=== PATIENT | female | born 1935 | race Caucasian/White ===

== ENCOUNTER 2024-11-13 00:41 | Inpatient (IN) ==
[2024-11-13] MEDS: FAMOTIDINE 20MG IV PUSH 20 MG/5 ML SYR IV STA (01:05)
[2024-11-13] MEDS: ONDANSETRON INJ 2 MG/ML 2 ML VIAL IV STA (01:05)
--- NOTE | 2024-11-13 01:05 | Emergency Department Note ---
Impression & Plan Vomiting, GERD (gastroesophageal reflux disease), Elevated troponin, Left bundle branch block ED Provider Note NAME: SUMANTH POLANCO AGE: 88 SEX: F : 1935 ARRIVES VIA: Ambulance INFORMANT: Patient ED PROVIDER(S): Jerry Rios MD CHIEF COMPLAINT: Vomiting, chest pain PLAN: Disposition: Admit MEDICAL DECISION MAKING: The patient is a pleasant 88-year-old woman with a past medical history of CAD, hypertension, hyperlipidemia, GERD who presents to the emergency department via EMS and accompanied by family for evaluation of onset of nausea and vomiting this evening with subsequent constant chest pain and upper abdominal pain. She reports no change in her bowel movements which are usually loose and takes Metamucil for bulking. She has any fevers, chills, cough, congestion, urinary symptoms. She denies any shortness of breath. On evaluation the patient is in no acute distress, afebrile with stable vital signs. She appears clinically dry. She has mild gastric discomfort without discrete tenderness. EKG demonstrates baseline left bundle branch block without Sgarbossa criteria. CXR negative for acute cardiopulmonary process and KUB with nonobstructive bowel gas pattern per my personal preliminary review/interpretation. WBC within normal limits. H/H 11.8/36.0 without recent for comparison. Platelets 1 18K, decreased from prior but without recent for comparison. Chemistry without metabolic acidosis. Magnesium 1.3 with IV repletion initiated. LFTs unremarkable. Initial high-sensitivity troponin is 29 with repeat increased to 210, nonspecific. Lipase is normal. TSH within limits. UA without evidence of infection. CT of the chest was performed was negative for PE or acute cardiopulmonary process otherwise. CT of the abdomen pelvis was performed and was also negative for acute abnormalities. Given the patient's rise in troponin patient and family agree with plan for admission for further management. Given pain occurred only after vomiting suspect symptoms likely related to GI etiology. Case was discussed with Dr. Prescott, [facility] hospitalist who will evaluate the patient for admission. Further management per admitting team. Triage Nursing notes reviewed and agree them. Prior/external medical records reviewed Vital Signs: reviewed Differential diagnosis: Cardiac ischemia, aortic dissection, pulmonary embolism, pneumothorax, pneumonia, pericarditis, myocarditis, esophageal rupture, GERD, cholecystitis, pancreatitis, musculoskeletal, as well as other pathologies. ER treatment provided: See below. Diagnostics interpreted by me: ECG: Normal sinus rhythm, 97 bpm, no ectopy, left bundle branch block, no Sgarbossa criteria, QTc 464, QRS 138, similar to July 07, 2020. Cardiac Monitoring: An order for continuous cardiac monitoring was placed and demonstrated normal sinus rhythm, 97 bpm, no ectopy. Laboratory studies: See below Imaging studies: See below Consultation(s): Dr. Prescott, [facility] hospitalist. HPI: Per MDM. ROS: See above HPI for pertinent positives & negatives. A total of 10 systems reviewed and were otherwise negative. VITALS:See Below PHYSICAL EXAMINATION: GENERAL: Awake, alert, in no distress HENT: Normocephalic, atraumatic. Oropharynx with dry mucous membranes and otherwise unremarkable. EYES: Normal conjunctiva. Sclera non-icteric. NECK: Supple. No nuchal rigidity. FROM. No JVD. RESPIRATORY: Clear to auscultation. CARDIAC: Regular rate, normal rhythm. Extremities warm and well perfused. Pulses equal. ABDOMEN: Soft, non-distended. Mild epigastric discomfort without discrete tenderness to palpation. No rebound or guarding. No masses. MUSCULOSKELETAL: Chest examination reveals no tenderness. The back is symmetrical on inspection without obvious abnormality. There is no CVA tenderness to palpation. No joint edema. LOWER EXTREMITIES: Calves are equal size bilaterally and non-tender. No edema. No discoloration. NEURO: Normal sensorium. No sensory or motor deficits noted. SKIN: No rash or jaundice noted. Jerry Rios MD Past Med/Surg History Problem List (Updated 11/14/24 @ 03:34 by Jerry Rios MD) NSTEMI (non-ST elevated myocardial infarction) Left bundle branch block (Acute) Elevated troponin (Acute) GERD (gastroesophageal reflux disease) (Acute) Vomiting (Acute) Atypical chest pain Hyperlipidemia GERD (gastroesophageal reflux disease) CAD (coronary atherosclerotic disease) Hypertension (Acute) Finger laceration (Acute) Medical History CAD (coronary atherosclerotic disease) GERD (gastroesophageal reflux disease) Hyperlipidemia Hypertension Surgical History S/P CABG (coronary artery bypass graft) Social History Smoking Status: Former smoker Tobacco Type: Cigarettes Hx Alcohol Use: No Hx Substance Use: No Preferred Language: Arabic Communication Ability: Effective Director Supply Required: No Beliefs That Will Affect Care: None Feels Safe at Home: Yes Assistive Devices: Glasses and Walker Allergies Allergies Allergy/AdvReac Type Severity Reaction Status Date / Time adhesive Allergy Intermediate rash Verified 11/13/24 01:29 cimetidine Allergy Intermediate rash Verified 11/13/24 01:29 ketorolac Allergy Intermediate EYE Verified 11/13/24 01:29 DROPS--ITCHY RASH Home Meds Home Medications Medication Instructions Recorded Confirmed amitriptyline 10 mg tablet 10 mg PO HS 07/07/20 11/13/24 aspirin 81 mg tablet,delayed 81 mg PO DAILY 07/07/20 11/13/24 release (Jerzy Low Dose Aspirin) atorvastatin 20 mg tablet 20 mg PO HS 07/07/20 11/13/24 cholecalciferol (vitamin D3) 25 25 mcg PO DAILY 07/07/20 11/13/24 mcg (1,000 unit) tablet (Vitamin D3) cyanocobalamin (vitamin B-12) 1,000 mcg PO DAILY 07/07/20 11/13/24 1,000 mcg tablet (Vitamin B-12) metoprolol succinate 25 mg 12.5 mg PO HS 07/07/20 11/13/24 tablet,extended release 24 hr acetaminophen 500 mg tablet 500 - 1,000 mg PO DIRECTED PRN 11/13/24 11/13/24 (Tylenol Extra Strength) Pain famotidine 20 mg tablet 20 mg PO HS 11/13/24 11/13/24 losartan 25 mg tablet 25 mg PO DAILY 11/13/24 11/13/24 mirabegron 25 mg tablet,extended 25 mg PO HS 11/13/24 11/13/24 release 24 hr (Myrbetriq) pantoprazole 40 mg tablet,delayed 40 mg PO BID 11/13/24 11/13/24 release sucralfate 1 gram tablet (Carafate) 1 g PO TID PRN Acid Reflux 11/13/24 11/13/24 Results & Data (ED) Vital Signs Vital Signs - 24 hr 11/13/24 04:30 11/13/24 05:04 Pulse Rate 96 H 92 H Respiratory Rate 18 Blood Pressure 122/74 Blood Pressure Mean 91 Pulse Oximetry 100 Laboratory Data Attestation: I reviewed the patient's lab results. 11/13/24 08:23 11/13/24 00:55 Lab Results 11/13/24 11/13/24 11/13/24 Range/Units 00:55 01:32 02:27 WBC 8.42 (4.8-10.8) K/ul RBC 3.78 L (4.20-5.40) M/uL Hgb 11.8 L (12.0-16.0) g/dl Hct 36.0 L (37.0-47.0) % MCV 95.2 (80.0-100.0) fL MCH 31.2 (25.0-34.0) pg MCHC 32.8 (32.0-36.0) g/dL RDW Std Deviation 47.0 H (36.4-46.3) fL RDW Coeff of Pankaj 13.6 (11.5-14.5) % Plt Count 118 L (130-400) K/uL MPV 12.4 (9.4-12.4) fL Immature Gran % (Auto) 0.5 % Neut % (Auto) 77.7 % Lymph % (Auto) 11.6 % Davie % (Auto) 8.8 % Eos % (Auto) 1.2 % Baso % (Auto) 0.2 % Neut # (Auto) 6.54 H (1.40-6.50) K/uL Lymph # (Auto) 0.98 L (1.20-3.40) K/uL Davie # (Auto) 0.74 H (0.11-0.59) K/uL Eos # (Auto) 0.10 (0.00-0.50) K/uL Baso # (Auto) 0.02 (0.00-0.20) K/uL Immature Gran # (Auto) 0.04 (0.01-0.20) K/uL PT Cancelled 12.0 INR Cancelled 1.1 Sodium 141 (136-145) mmol/L Potassium 3.9 (3.5-5.1) mmol/L Chloride 108 H (98-107) mmol/L Carbon Dioxide 25 (21-32) mmol/L Anion Gap 8 (3-11) BUN 24 H (6-23) mg/dl Creatinine 1.03 (0.6-1.2) mg/dl Est Cr Clr Drug Dosing 30.4 ml/min eGFR 52.95 BUN/Creatinine Ratio 23.3 H (10-20) Glucose 111 H (70-99(Fasting)) mg/dl Calcium 8.6 (8.6-10.3) mg/dl Phosphorus 3.1 (2.5-4.9) mg/dl Magnesium 1.3 L (1.7-2.4) mg/dl Total Bilirubin 0.5 (0.2-1.0) mg/dl Direct Bilirubin 0.1 (0-0.2) mg/dl AST 35 (13-39) U/L ALT 28 (7-52) U/L Alkaline Phosphatase 106 H (34-104) U/L Troponin I High Sens 29.4 H (0-14) pg/ml Total Protein 6.0 (6.0-8.3) gm/dl Albumin 3.6 (3.4-5.0) gm/dl Globulin 2.4 L (2.5-4.0) gm/dl Albumin/Globulin Ratio 1.5 (0.9-2) Lipase 30 (11-82) U/L TSH 2.724 (0.300-4.500) uIu/ml Urine Color Yellow Urine Appearance Clear (Clear) Urine pH 6.0 (4.5-7.5) Ur Specific Miller 1.009 (1.000-1.030) Urine Protein Negative (Negative) Urine Glucose (UA) Negative (Negative) Urine Ketones Negative (Negative) Urine Blood Negative (Negative) Urine Nitrite Negative (Negative) Urine Bilirubin Negative (Negative) Urine Urobilinogen Negative (Negative) Ur Leukocyte Esterase Negative (Negative) Urine Comment 11/13/24 Range/Units 04:12 WBC (4.8-10.8) K/ul RBC (4.20-5.40) M/uL Hgb (12.0-16.0) g/dl Hct (37.0-47.0) % MCV (80.0-100.0) fL MCH (25.0-34.0) pg MCHC (32.0-36.0) g/dL RDW Std Deviation (36.4-46.3) fL RDW Coeff of Pankaj (11.5-14.5) % Plt Count (130-400) K/uL MPV (9.4-12.4) fL Immature Gran % (Auto) % Neut % (Auto) % Lymph % (Auto) % Davie % (Auto) % Eos % (Auto) % Baso % (Auto) % Neut # (Auto) (1.40-6.50) K/uL Lymph # (Auto) (1.20-3.40) K/uL Davie # (Auto) (0.11-0.59) K/uL Eos # (Auto) (0.00-0.50) K/uL Baso # (Auto) (0.00-0.20) K/uL Immature Gran # (Auto) (0.01-0.20) K/uL PT INR Sodium (136-145) mmol/L Potassium (3.5-5.1) mmol/L Chloride (98-107) mmol/L Carbon Dioxide (21-32) mmol/L Anion Gap (3-11) BUN (6-23) mg/dl Creatinine (0.6-1.2) mg/dl Est Cr Clr Drug Dosing ml/min eGFR BUN/Creatinine Ratio (10-20) Glucose (70-99(Fasting)) mg/dl Calcium (8.6-10.3) mg/dl Phosphorus (2.5-4.9) mg/dl Magnesium (1.7-2.4) mg/dl Total Bilirubin (0.2-1.0) mg/dl Direct Bilirubin (0-0.2) mg/dl AST (13-39) U/L ALT (7-52) U/L Alkaline Phosphatase (34-104) U/L Troponin I High Sens 210.5 H* D (0-14) pg/ml Total Protein (6.0-8.3) gm/dl Albumin (3.4-5.0) gm/dl Globulin (2.5-4.0) gm/dl Albumin/Globulin Ratio (0.9-2) Lipase (11-82) U/L TSH (0.300-4.500) uIu/ml Urine Color Urine Appearance (Clear) Urine pH (4.5-7.5) Ur Specific Miller (1.000-1.030) Urine Protein (Negative) Urine Glucose (UA) (Negative) Urine Ketones (Negative) Urine Blood (Negative) Urine Nitrite (Negative) Urine Bilirubin (Negative) Urine Urobilinogen (Negative) Ur Leukocyte Esterase (Negative) Urine Comment Administered Medications Aspirin (Aspirin 81 Mg Ectab) 81 mg PO QAM KYRA Stop: 12/13/24 09:59 Last Admin: 11/13/24 11:59 Dose: 81 mg Documented By: MMF Atorvastatin Calcium (Atorvastatin 20 Mg Tab) 20 mg PO HS KYRA Stop: 12/13/24 20:59 Last Admin: 11/13/24 21:29 Dose: 20 mg Documented By: HDC Cyanocobalamin (Cyanocobalamin (B-12) 500 Mcg Tablet) 1,000 mcg PO DAILY KYRA Stop: 12/13/24 08:59 Last Admin: 11/13/24 08:17 Dose: 1,000 mcg Documented By: MMF Famotidine (Famotidine 20 Mg Tab) 20 mg PO HS KYRA Stop: 12/13/24 20:59 Last Admin: 11/13/24 21:32 Dose: 20 mg Documented By: HDC Heparin Sodium/Dextrose (Heparin 31370 Unit/500 Ml D5w) 25,000 units in 500 mls @ 14 mls/hr IV .Q24H KYRA; Protocol Stop: 12/13/24 10:14 Last Titration: 11/14/24 01:48 Dose: 700 units/hr, 14 mls/hr Documented By: HDC Co-signed By: DESOMND Admin: 11/13/24 20:55 Dose: 750 units/hr, 15 mls/hr Documented By: HDC Co-signed By: [facility] Losartan Potassium (Losartan Potassium 25 Mg Tab) 25 mg PO DAILY KYRA Stop: 12/13/24 08:59 Last Admin: 11/13/24 08:17 Dose: 25 mg Documented By: MMF Metoprolol Succinate (Metoprolol Succ 25mg Ext Rel Tab) 12.5 mg PO HS KYRA Stop: 12/13/24 20:59 Last Admin: 11/13/24 21:29 Dose: Not Given Documented By: HDC Pantoprazole Sodium (Pantoprazole 40 Mg Tab) 40 mg PO BID KYRA Stop: 12/13/24 08:59 Last Admin: 11/13/24 21:29 Dose: 40 mg Documented By: Admin: 11/13/24 08:17 Dose: 40 mg Documented By: MMF Vibegron (Vibegron 75 Mg Tab) 75 mg PO HS KYRA Stop: 12/13/24 20:59 Last Admin: 11/13/24 21:29 Dose: 75 mg Documented By: HDC Discontinued Medications Famotidine (Pepcid 20mg Iv Push) 20 mg in 5 mls @ 2.5 mls/min IV NOW STA Stop: 11/13/24 01:00 Last Admin: 11/13/24 01:05 Dose: 2.5 mls/min Documented By: MIRIAN Sodium Chloride (Nss) 500 mls @ 999 mls/hr IV .Q31M ONE Stop: 11/13/24 01:31 Last Infusion: 11/13/24 03:00 Dose: Infused Documented By: Admin: 11/13/24 01:14 Dose: 999 mls/hr Documented By: MIRIAN Magnesium Sulfate/Dextrose (Magnesium Sulfate / D5w) 1 gm in 100 mls @ 100 mls/hr IV Q1H KYRA Stop: 11/13/24 03:56 Last Infusion: 11/13/24 04:24 Dose: Infused Documented By: Admin: 11/13/24 03:24 Dose: 100 mls/hr Documented By: Infusion: 11/13/24 03:07 Dose: Infused Documented By: Admin: 11/13/24 02:07 Dose: 100 mls/hr Documented By: MIRIAN Magnesium Sulfate/Dextrose (Magnesium Sulfate / D5w) 1 gm in 100 mls @ 50 mls/hr IV ONE STA Stop: 11/13/24 07:24 Last Infusion: 11/13/24 08:09 Dose: Infused Documented By: Admin: 11/13/24 05:32 Dose: 50 mls/hr Documented By: MBL Heparin Sodium/Dextrose (Heparin 23957 Unit/500 Ml D5w) 25,000 units in 500 mls @ 0 mls/hr IV .Q0M KYRA; Protocol Stop: 12/13/24 10:14 Last Titration: 11/13/24 21:16 Dose: Infused Documented By: HDC Co-signed By: ESG Titration: 11/13/24 19:19 Dose: 750 units/hr, 15 mls/hr Documented By: HDC Co-signed By: AMC Titration: 11/13/24 18:10 Dose: 0 units/hr, 0 mls/hr Documented By: AK Co-signed By: MP Admin: 11/13/24 10:53 Dose: 900 units/hr, 18 mls/hr Documented By: TOMAS Co-signed By: BELLA Magnesium Sulfate/Dextrose (Magnesium Sulfate / D5w) 1 gm in 100 mls @ 50 mls/hr IV Q2H KYRA Stop: 11/13/24 14:29 Last Infusion: 11/13/24 15:29 Dose: Infused Documented By: Admin: 11/13/24 13:29 Dose: 50 mls/hr Documented By: Infusion: 11/13/24 12:59 Dose: Infused Documented By: Admin: 11/13/24 10:48 Dose: 50 mls/hr Documented By: MMF Heparin Sodium/Dextrose (Heparin 50200 Unit/500 Ml D5w) 25,000 units in 500 mls @ 15 mls/hr IV .Q24H KYRA; Protocol Stop: 12/13/24 10:14 Last Admin: 11/13/24 21:16 Dose: Not Given Documented By: HDC Ioversol (Optiray 320 125ml) 125 ml IV ONCE ONE Stop: 11/13/24 03:49 Last Admin: 11/13/24 03:48 Dose: 118 ml Documented By: MONICA Ondansetron HCl (Ondansetron Inj 2 Mg/Ml 2 Ml Vial) 4 mg IV NOW STA Stop: 11/13/24 01:00 Last Admin: 11/13/24 01:05 Dose: 4 mg Documented By: MIRIAN Sucralfate (Sucralfate 1 Gm/10 Ml Udc) 1 gm PO NOW STA Stop: 11/13/24 05:16 Last Admin: 11/13/24 05:32 Dose: 1 gm Documented By: [facility] Imaging Data Radiologist's Impression: Chest X-Ray 11/13/24 00:59 EXAM: XR chest 1V portable CLINICAL HISTORY: Chest pain, nonspecific TECHNIQUE: An X-ray image of the chest is obtained in AP projection. COMPARISON: 07/07/2020. FINDINGS: Pulmonary Parenchyma: Stable small right upper and larger right middle lung zones opacities with irregular borders. Increased accentuated bilateral bronchovascular markings and prominent katty. No evidence of pleural effusion or pleural thickening. Heart and Mediastinum: Stable median sternotomy wires and atheromatous calcifications of the aorta. Heart size and shape are normal. No mediastinal widening or masses. No hilar or mediastinal lymphadenopathy. Bony Thorax: Bony thorax appears intact without fractures or deformities. Soft Tissues: Soft tissues overlying the chest wall are unremarkable. IMPRESSION: 1. Stable small right upper and larger right middle lung zones opacities with irregular borders. 2. CT scan is advised for further evaluation. Electronically signed by Napoleon Smith 11-13-2024 02:33 AM KUB X-Ray 11/13/24 00:59 EXAM: XR KUB/Abdomen 1 view CLINICAL HISTORY: Nausea, vomiting. TECHNIQUE: X-ray images of the abdomen were obtained in frontal position. COMPARISON: No prior studies available for comparison. FINDINGS: No definite calculi are seen along the confines of the urinary tract. Gas Pattern: Gas pattern within the abdomen is normal. No evidence of bowel obstruction or distention. Fecal loading shadows. Soft Tissues: Soft tissues of the abdomen appear normal without evidence of masses or calcifications. Liver, spleen, and kidneys are of normal size and position. Additional findings: Tiny opaque shadow possibly calcific overlying right hypochondrial confinement. Post cholecystectomy metallic clips. 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 Diffuse osteopenic texture of the scanned bones. Bilateral hip osteoarthritic changes. Bilateral sacroilitis. Aorto-iliac atheromatous calcifications. IMPRESSION: 1. Fecal loading shadows. 2. No evidence of bowel obstruction or distention at this time. Follow-up is suggested if clinically indicated. 3. Tiny opaque shadow possibly calcific overlying right hypochondrial confinement (not identified at CR chest done at the same time). Otherwise, no definite calculi are seen along the confines of the urinary tract. Electronically signed by Napoleon Smith 11-13-2024 03:01 AM Abdomen/Pelvis CT 11/13/24 02:32 EXAM: CT abd pelvis IV con only CLINICAL HISTORY: abd pain, n/v TECHNIQUE: Multiple contiguous axial images were obtained from the level of diaphragm to the pubis symphysis. This study was acquired after the IV administration of iodinated contrast material, given the patients indications for the examination. If IV contrast material had not been administered, the likelihood of detecting abnormalities relevant to the patients condition would have been substantially decreased. Coronal and sagittal reformatted images were generated and reviewed to improve anatomic localization and optimize lesion detection. CT scan was performed according to ALARA (as low as reasonable achievable). COMPARISON: none FINDINGS: ABDOMEN/PELVIS: The liver is normal in size and attenuation. No focal liver lesions are seen. There is no intra or extrahepatic biliary ductal dilatation. Hepatic vasculature is patent. The gallbladder was surgically removed The spleen, pancreas, and adrenal glands are unremarkable. The kidneys are normal in size and attenuation. There is no hydronephrosis or perinephric fat stranding. No renal calculi or renal masses are identified. Small exophytic bosniak type I cyst on right side. The ureters are normal in caliber and no ureteral calculi are seen. The bladder is undistended No evidence of focal or diffuse bowel wall thickening or evidence of bowel obstruction is seen. No evidence of inflamed appendix. No adenopathy or fluid collections are seen. The aorta is normal in caliber. 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 Angiographic images were processed, 3D MIP images were acquired for interpretation. If IV contrast material had not been administered, the likelihood of detecting abnormalities relevant to the patient's condition would have been substantially decreased. Coronal and sagittal 3-D MIPs were likewise performed and indicated to increase the sensitivity of detecting diffuse clinically relevant pathology. CT scan was performed according to ALARA (as low as reasonable achievable). COMPARISON: None. FINDINGS: Adequate contrast bolus without evidence of pulmonary embolism. Calcified pleural plaques are seen in the right chest along right upper lobe. Mild smooth interlobular septal thickening is seen in the lungs bilaterally. Dependent reticulations and ground glass areas are seen in the lungs bilaterally. Atlectatic bands are seen in lower lobes. The central airways are patent. No pleural effusion. The heart, aorta, and pulmonary arteries are of normal size and configuration. No pericardial effusion is identified. There are appreciable coronary artery and aortic atherosclerotic calcifications. The thyroid is unremarkable. No mediastinal, hilar, or axillary lymphadenopathy is noted. No suspicious lytic or sclerotic osseous lesions are identified. Degenerative changes are seen in visualised spine. Metallic sternal sutures are seen. IMPRESSION: 1.No evidence of pulmonary embolism. 2.Calcified pleural plaques in right chest along right upper lobe - 3.Mild smooth interlobular septal thickening is seen in the lungs bilaterally with dependent reticulations and ground glass areas - raising the possibility of interstitial edema. Electronically signed by Maximus Gonsalez 11-13-2024 05:14 AM Discharge Plan Visit Data Chief Complaint: Illness ED Provider: Jerry Rios Discharge Problem: Vomiting, GERD (gastroesophageal reflux disease), Elevated troponin, Left bundle branch block Patient Disposition: Admitted As Inpatient Condition: Fair Discharge Instructions Interventions: ED Discharge Assessment Last Done: 11/13/24 06:16 Discharge Problem: Vomiting Qualifiers: Vomiting type: unspecified Nausea presence: with nausea Qualified Code(s): R 11.2 - Nausea with vomiting, unspecified GERD (gastroesophageal reflux disease) Qualifiers: Esophagitis presence: with esophagitis Esophagitis bleeding: without hemorrhage Qualified Code(s): K21.00 - Gastro-esophageal reflux disease with esophagitis, without bleeding
[2024-11-13] MEDS: SODIUM CHLORIDE 0.9% 500 ML IV ONE (01:14)
[2024-11-13 01:28] LABS: Hematocrit (blood only) 36.0 % (37.0-47.0); Hemoglobin 11.8 g/dl (12.0-16.0); Immature Granulocytes # (auto) 0.04 K/uL (0.01-0.20); Immature Granulocytes % (auto) 0.5 %; Mean Corpuscular Hemoglobin 31.2 pg (25.0-34.0); Mean Corpuscular Volume 95.2 fL (80.0-100.0); Platelet Count 118 K/uL (130-400); RDW Standard Deviation 47.0 fL (36.4-46.3); Red Blood Count 3.78 M/uL (4.20-5.40); White Blood Count 8.42 K/ul (4.8-10.8)
[2024-11-13 01:46] LABS: Alanine Aminotransferase 28.0 U/L (7-52); Albumin Globulin Ratio 1.5 (0.9-2); Alkaline Phosphatase 106.0 U/L (34-104); Anion Gap 8.0 (3-11); Bilirubin,Total 0.5 mg/dl (0.2-1.0); Blood Urea Nitrogen 24.0 mg/dl (6-23); Calcium 8.6 mg/dl (8.6-10.3); Carbon Dioxide 25.0 mmol/L (21-32); Chloride 108.0 mmol/L (98-107); Creatinine Clr Calc Pharmacy 30.4 ml/min; Globulin 2.4 gm/dl (2.5-4.0); Glucose 111.0 mg/dl (70-99(Fasting)); Lipase 30.0 U/L (11-82); Magnesium 1.3 mg/dl (1.7-2.4); Potassium 3.9 mmol/L (3.5-5.1); Sodium 141.0 mmol/L (136-145); Total Protein 6.0 gm/dl (6.0-8.3)
[2024-11-13 02:01] LABS: Appearance Urine Clear (Clear); Glucose Urine UA Negative (Negative)
[2024-11-13 02:01] LABS: Thyroid Stimulating Hormone 2.724 uIu/ml (0.300-4.500)
[2024-11-13] MEDS: MAGNESIUM SULFATE / D5W 1 GM/100 ML BAG IV SCH ×2 (02:07→10:48)
--- NOTE | 2024-11-13 02:34 | XRay Report ---
EXAM: XR chest 1V portable CLINICAL HISTORY: Chest pain, nonspecific TECHNIQUE: An X-ray image of the chest is obtained in AP projection. COMPARISON: 07/07/2020. FINDINGS: Pulmonary Parenchyma: Stable small right upper and larger right middle lung zones opacities with irregular borders. Increased accentuated bilateral bronchovascular markings and prominent katty. No evidence of pleural effusion or pleural thickening. Heart and Mediastinum: Stable median sternotomy wires and atheromatous calcifications of the aorta. Heart size and shape are normal. No mediastinal widening or masses. No hilar or mediastinal lymphadenopathy. Bony Thorax: Bony thorax appears intact without fractures or deformities. Soft Tissues: Soft tissues overlying the chest wall are unremarkable. IMPRESSION: 1. Stable small right upper and larger right middle lung zones opacities with irregular borders. 2. CT scan is advised for further evaluation. Electronically signed by Napoleon Smith 11-13-2024 02:33 AM
--- NOTE | 2024-11-13 03:01 | XRay Report ---
EXAM: XR KUB/Abdomen 1 view CLINICAL HISTORY: Nausea, vomiting. TECHNIQUE: X-ray images of the abdomen were obtained in frontal position. COMPARISON: No prior studies available for comparison. FINDINGS: No definite calculi are seen along the confines of the urinary tract. Gas Pattern: Gas pattern within the abdomen is normal. No evidence of bowel obstruction or distention. Fecal loading shadows. Soft Tissues: Soft tissues of the abdomen appear normal without evidence of masses or calcifications. Liver, spleen, and kidneys are of normal size and position. Additional findings: Tiny opaque shadow possibly calcific overlying right hypochondrial confinement. Post cholecystectomy metallic clips. 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 Diffuse osteopenic texture of the scanned bones. Bilateral hip osteoarthritic changes. Bilateral sacroilitis. Aorto-iliac atheromatous calcifications. IMPRESSION: 1. Fecal loading shadows. 2. No evidence of bowel obstruction or distention at this time. Follow-up is suggested if clinically indicated. 3. Tiny opaque shadow possibly calcific overlying right hypochondrial confinement (not identified at CR chest done at the same time). Otherwise, no definite calculi are seen along the confines of the urinary tract. Electronically signed by Napoleon Smith 11-13-2024 03:01 AM
[2024-11-13 03:14] LABS: INR 1.1 (0.9-1.1); Prothrombin Time 12.0 Seconds (9.0-12.0)
[2024-11-13] MEDS: OPTIRAY 320 125ml IV ONE (03:48)
--- NOTE | 2024-11-13 05:09 | CT Scan Report ---
EXAM: CT abd pelvis IV con only CLINICAL HISTORY: abd pain, n/v TECHNIQUE: Multiple contiguous axial images were obtained from the level of diaphragm to the pubis symphysis. This study was acquired after the IV administration of iodinated contrast material, given the patients indications for the examination. If IV contrast material had not been administered, the likelihood of detecting abnormalities relevant to the patients condition would have been substantially decreased. Coronal and sagittal reformatted images were generated and reviewed to improve anatomic localization and optimize lesion detection. CT scan was performed according to ALARA (as low as reasonable achievable). COMPARISON: none FINDINGS: ABDOMEN/PELVIS: The liver is normal in size and attenuation. No focal liver lesions are seen. There is no intra or extrahepatic biliary ductal dilatation. Hepatic vasculature is patent. The gallbladder was surgically removed The spleen, pancreas, and adrenal glands are unremarkable. The kidneys are normal in size and attenuation. There is no hydronephrosis or perinephric fat stranding. No renal calculi or renal masses are identified. Small exophytic bosniak type I cyst on right side. The ureters are normal in caliber and no ureteral calculi are seen. The bladder is undistended No evidence of focal or diffuse bowel wall thickening or evidence of bowel obstruction is seen. No evidence of inflamed appendix. No adenopathy or fluid collections are seen. The aorta is normal in caliber. 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
--- NOTE | 2024-11-13 05:15 | CT Scan Report ---
EXAM: CT angio chest PE protocol CLINICAL HISTORY: cp, n/v, sob, r/o PE TECHNIQUE: Contiguous axial images were obtained from the neck base through the upper abdomen following intravenous administration of iodinated contrast material. Angiographic images were processed, 3D MIP images were acquired for interpretation. If IV contrast material had not been administered, the likelihood of detecting abnormalities relevant to the patient's condition would have been substantially decreased. Coronal and sagittal 3-D MIPs were likewise performed and indicated to increase the sensitivity of detecting diffuse clinically relevant pathology. CT scan was performed according to ALARA (as low as reasonable achievable). COMPARISON: None. FINDINGS: Adequate contrast bolus without evidence of pulmonary embolism. Calcified pleural plaques are seen in the right chest along right upper lobe. Mild smooth interlobular septal thickening is seen in the lungs bilaterally. Dependent reticulations and ground glass areas are seen in the lungs bilaterally. Atlectatic bands are seen in lower lobes. The central airways are patent. No pleural effusion. The heart, aorta, and pulmonary arteries are of normal size and configuration. No pericardial effusion is identified. There are appreciable coronary artery and aortic atherosclerotic calcifications. The thyroid is unremarkable. No mediastinal, hilar, or axillary lymphadenopathy is noted. No suspicious lytic or sclerotic osseous lesions are identified. Degenerative changes are seen in visualised spine. Metallic sternal sutures are seen. IMPRESSION: 1.No evidence of pulmonary embolism. 2.Calcified pleural plaques in right chest along right upper lobe - 3.Mild smooth interlobular septal thickening is seen in the lungs bilaterally with dependent reticulations and ground glass areas - raising the possibility of interstitial edema. Electronically signed by Maximus Gonsalez 11-13-2024 05:14 AM
--- NOTE | 2024-11-13 05:28 | History & Physical Report ---
Date of Service November 13, 2024 Assessment & Plan (1) Atypical chest pain: Plan: Assessment and plan below following discussion of case with ED provider and reviewing patient history/pertinent normal/abnormal diagnostic test results. Atypical chest pain Secondary to uncontrolled GERD Troponin elevation possibly from tachycardia at home Hypomagnesemia secondary to illness New onset anemia, thrombocytopenia, FOBT done at the ER was negative chronic systolic heart failure (EF 45 to 50%, TTE 2023), some congestion on imaging, patient denies fluid retention hx CAD status post CABG/stent, well-controlled as of recent outpatient [employer] ring [employer]er visit last 11/04/2024. chronic LBBB PVD status post surgery hx TIA hypertension, BP currently stable hyperlipidemia, on statin Rx prediabetes, hemoglobin A1c of 5.5 from 2017 past tobacco abuse Admit to PCU given troponin elevation Follow troponin TTE GI consult re: uncontrolled GERD Continue antacid regimen N.p.o. in anticipation of endoscopy Anemia workup, patient declining prospective blood transfusion for now Hold home antiplatelet Rx for now until H&H stable Update hemoglobin A1c DVT prophylaxis. SCDs Re: Thrombocytopenia DNR Patient daughter requesting updates providers. Ms. Kady Maddox, contact #[phone]. Text document was generated using [employer] voice recognition software. It may contain grammatical or spelling errors. Kindly contact undersigned for clarification of any documentation item in question. History of Present Illness Chief Complaint: Abdominal pain, chest pain, vomiting Primary Care Provider: Leesa Garcia MD History obtained from patient, family, and records. Medical history significant for chronic systolic heart failure (EF 45 to 50%, TTE 2023), CAD status post CABG (2004)/stent (2006), chronic LBBB, PVD status post surgery, TIA, hypertension, hyperlipidemia, GERD, prediabetes, mood disorder, past tobacco abuse. 6 months history of postprandial epigastric pain, nausea, vomiting symptoms. Worsening heartburn. Discomfort sometimes going to the chest. Different from heart attack from 2005 as per patient. Some weight loss. No OTC NSAID intake. Denies hematemesis/coffee-ground emesis/melena/bloody stools.' Patient started by PCP on PPI medication last June,. Patient seen on outpatient GI consultation 3 weeks ago. Carafate added to patient's PPI and famotidine Rx. Outpatient EGD scheduled next week. 4 days ago, patient noted dizziness described as lightheadedness. No headache symptoms. Worsening epigastric discomfort going to the chest associated with nausea, palpitations, and bilious emesis. No gross bleeding noted at home. EMS called to patient's home. Patient noted to be tachycardic, heart rate 116. Patient brought to ER for evaluation. Medical History as above 2018 EGD showed tortuous esophagus, hiatal hernia, gastritis, normal duodenum 2016 colonoscopy showed sigmoid diverticulosis Surgical History : CABG, partial hysterectomy, right thromboendarterectomy, cholecystectomy Family History : Heart disease, DM Personal/Social history : Past tobacco abuse, no recent EtOH intake, retired cigar factory employee Allergies Allergy/AdvReac Type Severity Reaction Status Date / Time adhesive Allergy Intermediate rash Verified 11/13/24 01:29 cimetidine Allergy Intermediate rash Verified 11/13/24 01:29 ketorolac Allergy Intermediate EYE Verified 11/13/24 01:29 DROPS--ITCHY RASH Home Medications Medication Instructions Recorded Confirmed Type amitriptyline 10 mg tablet 10 mg PO HS 07/07/20 11/13/24 History aspirin 81 mg tablet,delayed 81 mg PO DAILY 07/07/20 11/13/24 History release (Jerzy Low Dose Aspirin) atorvastatin 20 mg tablet 20 mg PO HS 07/07/20 11/13/24 History cholecalciferol (vitamin D3) 25 25 mcg PO DAILY 07/07/20 11/13/24 History mcg (1,000 unit) tablet (Vitamin D3) cyanocobalamin (vitamin B-12) 1,000 mcg PO DAILY 07/07/20 11/13/24 History 1,000 mcg tablet (Vitamin B-12) metoprolol succinate 25 mg 12.5 mg PO HS 07/07/20 11/13/24 History tablet,extended release 24 hr acetaminophen 500 mg tablet 500 - 1,000 mg PO DIRECTED PRN 11/13/24 11/13/24 History (Tylenol Extra Strength) Pain famotidine 20 mg tablet 20 mg PO HS 11/13/24 11/13/24 History losartan 25 mg tablet 25 mg PO DAILY 11/13/24 11/13/24 History mirabegron 25 mg tablet,extended 25 mg PO HS 11/13/24 11/13/24 History release 24 hr (Myrbetriq) pantoprazole 40 mg tablet,delayed 40 mg PO BID 11/13/24 11/13/24 History release sucralfate 1 gram tablet (Carafate) 1 g PO TID PRN Acid Reflux 11/13/24 11/13/24 History Past Med/Surg History Problem List (Updated 11/13/24 @ 06:33 by Ej Prescott MD) Atypical chest pain Hyperlipidemia GERD (gastroesophageal reflux disease) CAD (coronary atherosclerotic disease) Hypertension (Acute) Finger laceration (Acute) Medical History CAD (coronary atherosclerotic disease) GERD (gastroesophageal reflux disease) Hyperlipidemia Hypertension Surgical History S/P CABG (coronary artery bypass graft) Social History Smoking Status: Former smoker Preferred Language: [place] Feels Safe at Home: Yes Review of Systems Review of Systems: As per HPI, all other systems reviewed and negative Physical Exam Physical Exam: GENERAL: Comfortable, pleasant, no respiratory distress SKIN: Normal color, warm HEENT: Bespectacled, pink palpebral conjunctivae, no ptosis, dry buccal mucosa NECK : Supple, no tenderness CHEST : Decreased breath sounds, no tenderness HEART : RRR, no obvious murmurs ABDOMEN: Some distention, epigastric tenderness RECTAL : Intact sphincter, brown stool (FOBT negative) EXTREMITIES : No LE swelling/tenderness, palpable pulses, no other conspicuous deformities noted NEUROLOGIC : Coherent, no facial asymmetry, no other gross focality Results & Data Results & Data Vital Signs (Past 12 Hours) Vital Signs Temp Pulse Resp BP Pulse Ox O2 Del Method 11/13/24 05:04 92 H 11/13/24 04:30 96 H 18 122/74 100 11/13/24 03:30 98 H 18 123/76 95 11/13/24 03:00 98 H 18 113/71 97 11/13/24 02:00 96 H 16 92 11/13/24 02:00 123/76 11/13/24 01:51 100 H 18 92 11/13/24 01:48 93 H 20 92 11/13/24 01:30 97 H 15 93 11/13/24 01:30 126/80 11/13/24 01:30 126/80 07/10/25 01:30 126/80 11/13/24 01:30 126/80 11/13/24 01:14 134/80 11/13/24 01:06 92 H 18 94 11/13/24 01:03 95 H 21 93 11/13/24 01:00 131/76 11/13/24 00:59 93 Room Air 11/13/24 00:58 99 H 11/13/24 00:29 36.8 C 97 H 20 131/76 90 Room Air Laboratory Results Laboratory Results WBC 8.42 K/ul (4.8-10.8) 11/13/24 00:55 RBC 3.78 M/uL (4.20-5.40) L 11/13/24 00:55 Hgb 11.8 g/dl (12.0-16.0) L 11/13/24 00:55 Hct 36.0 % (37.0-47.0) L 11/13/24 00:55 MCV 95.2 fL (80.0-100.0) 11/13/24 00:55 MCH 31.2 pg (25.0-34.0) 11/13/24 00:55 MCHC 32.8 g/dL (32.0-36.0) 11/13/24 00:55 RDW Std Deviation 47.0 fL (36.4-46.3) H 11/13/24 00:55 RDW Coeff of Pankaj 13.6 % (11.5-14.5) 11/13/24 00:55 Plt Count 118 K/uL (130-400) L 11/13/24 00:55 MPV 12.4 fL (9.4-12.4) 11/13/24 00:55 Immature Gran % (Auto) 0.5 % 11/13/24 00:55 Neut % (Auto) 77.7 % 11/13/24 00:55 Lymph % (Auto) 11.6 % 11/13/24 00:55 [place] % (Auto) 8.8 % 11/13/24 00:55 Eos % (Auto) 1.2 % 11/13/24 00:55 Baso % (Auto) 0.2 % 11/13/24 00:55 Neut # (Auto) 6.54 K/uL (1.40-6.50) H 11/13/24 00:55 Lymph # (Auto) 0.98 K/uL (1.20-3.40) L 11/13/24 00:55 [place] # (Auto) 0.74 K/uL (0.11-0.59) H 11/13/24 00:55 Eos # (Auto) 0.10 K/uL (0.00-0.50) 11/13/24 00:55 Baso # (Auto) 0.02 K/uL (0.00-0.20) 11/13/24 00:55 Immature Gran # (Auto) 0.04 K/uL (0.01-0.20) 11/13/24 00:55 PT 12.0 Seconds (9.0-12.0) 11/13/24 02:27 INR 1.1 (0.9-1.1) 11/13/24 02:27 Sodium 141 mmol/L (136-145) 11/13/24 00:55 Potassium 3.9 mmol/L (3.5-5.1) 11/13/24 00:55 Chloride 108 mmol/L (98-107) H 11/13/24 00:55 Carbon Dioxide 25 mmol/L (21-32) 11/13/24 00:55 Anion Gap 8 (3-11) 11/13/24 00:55 BUN 24 mg/dl (6-23) H 11/13/24 00:55 Creatinine 1.03 mg/dl (0.6-1.2) 11/13/24 00:55 Est Cr Clr Drug Dosing 30.4 ml/min 11/13/24 00:55 eGFR 52.95 11/13/24 00:55 BUN/Creatinine Ratio 23.3 (10-20) H 11/13/24 00:55 Glucose 111 mg/dl (70-99(Fasting)) H 11/13/24 00:55 Calcium 8.6 mg/dl (8.6-10.3) 11/13/24 00:55 Phosphorus 3.1 mg/dl (2.5-4.9) 11/13/24 00:55 Magnesium 1.3 mg/dl (1.7-2.4) L 11/13/24 00:55 Total Bilirubin 0.5 mg/dl (0.2-1.0) 11/13/24 00:55 Direct Bilirubin 0.1 mg/dl (0-0.2) 11/13/24 00:55 AST 35 U/L (13-39) 11/13/24 00:55 ALT 28 U/L (7-52) 11/13/24 00:55 Alkaline Phosphatase 106 U/L (34-104) H 11/13/24 00:55 Troponin I High Sens 210.5 pg/ml (0-14) H* D 11/13/24 04:12 Total Protein 6.0 gm/dl (6.0-8.3) 11/13/24 00:55 Albumin 3.6 gm/dl (3.4-5.0) 11/13/24 00:55 Globulin 2.4 gm/dl (2.5-4.0) L 11/13/24 00:55 Albumin/Globulin Ratio 1.5 (0.9-2) 11/13/24 00:55 Lipase 30 U/L (11-82) 11/13/24 00:55 TSH 2.724 uIu/ml (0.300-4.500) 11/13/24 00:55 Urine Color Yellow 11/13/24 01:32 Urine Appearance Clear (Clear) 11/13/24 01:32 Urine pH 6.0 (4.5-7.5) 11/13/24 01:32 Ur Specific [place] 1.009 (1.000-1.030) 11/13/24 01:32 Urine Protein Negative (Negative) 11/13/24 01:32 Urine Glucose (UA) Negative (Negative) 11/13/24 01:32 Urine Ketones Negative (Negative) 11/13/24 01:32 Urine Blood Negative (Negative) 11/13/24 01:32 Urine Nitrite Negative (Negative) 11/13/24 01:32 Urine Bilirubin Negative (Negative) 11/13/24 01:32 Urine Urobilinogen Negative (Negative) 11/13/24 01:32 Ur Leukocyte Esterase Negative (Negative) 11/13/24 01:32 Urine Comment 11/13/24 01:32 Impressions Chest X-Ray 11/13/24 00:59 EXAM: XR chest 1V portable CLINICAL HISTORY: Chest pain, nonspecific TECHNIQUE: An X-ray image of the chest is obtained in AP projection. COMPARISON: 07/07/2020. FINDINGS: Pulmonary Parenchyma: Stable small right upper and larger right middle lung zones opacities with irregular borders. Increased accentuated bilateral bronchovascular markings and prominent katty. No evidence of pleural effusion or pleural thickening. Heart and Mediastinum: Stable median sternotomy wires and atheromatous calcifications of the aorta. Heart size and shape are normal. No mediastinal widening or masses. No hilar or mediastinal lymphadenopathy. Bony Thorax: Bony thorax appears intact without fractures or deformities. Soft Tissues: Soft tissues overlying the chest wall are unremarkable. IMPRESSION: 1. Stable small right upper and larger right middle lung zones opacities with irregular borders. 2. CT scan is advised for further evaluation. Electronically signed by Napoleon Smith 11-13-2024 02:33 AM KUB X-Ray 11/13/24 00:59 EXAM: XR KUB/Abdomen 1 view CLINICAL HISTORY: Nausea, vomiting. TECHNIQUE: X-ray images of the abdomen were obtained in frontal position. COMPARISON: No prior studies available for comparison. FINDINGS: No definite calculi are seen along the confines of the urinary tract. Gas Pattern: Gas pattern within the abdomen is normal. No evidence of bowel obstruction or distention. Fecal loading shadows. Soft Tissues: Soft tissues of the abdomen appear normal without evidence of masses or calcifications. Liver, spleen, and kidneys are of normal size and position. Additional findings: Tiny opaque shadow possibly calcific overlying right hypochondrial confinement. Post cholecystectomy metallic clips. 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 Diffuse osteopenic texture of the scanned bones. Bilateral hip osteoarthritic changes. Bilateral sacroilitis. Aorto-iliac atheromatous calcifications. IMPRESSION: 1. Fecal loading shadows. 2. No evidence of bowel obstruction or distention at this time. Follow-up is suggested if clinically indicated. 3. Tiny opaque shadow possibly calcific overlying right hypochondrial confinement (not identified at CR chest done at the same time). Otherwise, no definite calculi are seen along the confines of the urinary tract. Electronically signed by Napoleon Smith 11-13-2024 03:01 AM Abdomen/Pelvis CT 11/13/24 02:32 EXAM: CT abd pelvis IV con only CLINICAL HISTORY: abd pain, n/v TECHNIQUE: Multiple contiguous axial images were obtained from the level of diaphragm to the pubis symphysis. This study was acquired after the IV administration of iodinated contrast material, given the patients indications for the examination. If IV contrast material had not been administered, the likelihood of detecting abnormalities relevant to the patients condition would have been substantially decreased. Coronal and sagittal reformatted images were generated and reviewed to improve anatomic localization and optimize lesion detection. CT scan was performed according to ALARA (as low as reasonable achievable). COMPARISON: none FINDINGS: ABDOMEN/PELVIS: The liver is normal in size and attenuation. No focal liver lesions are seen. There is no intra or extrahepatic biliary ductal dilatation. Hepatic vasculature is patent. The gallbladder was surgically removed The spleen, pancreas, and adrenal glands are unremarkable. The kidneys are normal in size and attenuation. There is no hydronephrosis or perinephric fat stranding. No renal calculi or renal masses are identified. Small exophytic bosniak type I cyst on right side. The ureters are normal in caliber and no ureteral calculi are seen. The bladder is undistended No evidence of focal or diffuse bowel wall thickening or evidence of bowel obstruction is seen. No evidence of inflamed appendix. No adenopathy or fluid collections are seen. The aorta is normal in caliber. 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 Angiographic images were processed, 3D MIP images were acquired for interpretation. If IV contrast material had not been administered, the likelihood of detecting abnormalities relevant to the patient's condition would have been substantially decreased. Coronal and sagittal 3-D MIPs were likewise performed and indicated to increase the sensitivity of detecting diffuse clinically relevant pathology. CT scan was performed according to ALARA (as low as reasonable achievable). COMPARISON: None. FINDINGS: Adequate contrast bolus without evidence of pulmonary embolism. Calcified pleural plaques are seen in the right chest along right upper lobe. Mild smooth interlobular septal thickening is seen in the lungs bilaterally. Dependent reticulations and ground glass areas are seen in the lungs bilaterally. Atlectatic bands are seen in lower lobes. The central airways are patent. No pleural effusion. The heart, aorta, and pulmonary arteries are of normal size and configuration. No pericardial effusion is identified. There are appreciable coronary artery and aortic atherosclerotic calcifications. The thyroid is unremarkable. No mediastinal, hilar, or axillary lymphadenopathy is noted. No suspicious lytic or sclerotic osseous lesions are identified. Degenerative changes are seen in visualised spine. Metallic sternal sutures are seen. IMPRESSION: 1.No evidence of pulmonary embolism. 2.Calcified pleural plaques in right chest along right upper lobe - 3.Mild smooth interlobular septal thickening is seen in the lungs bilaterally with dependent reticulations and ground glass areas - raising the possibility of interstitial edema. Electronically signed by Maximus Gonsalez 11-13-2024 05:14 AM Diagnostic Findings EKG as per my interpretation :Rate 95, NSR, LAD, LAFB, LBBB
[2024-11-13] MEDS: MAGNESIUM SULFATE / D5W 1 GM/100 ML BAG IV STA (05:32)
[2024-11-13] MEDS: SUCRALFATE 1 GM/10 ML UDC PO STA (05:32)
[2024-11-13] MEDS ORDERED: MoRPHine SULFATE 2 MG/ML CARP IV PRN (06:14)
[2024-11-13] MEDS ORDERED: SUCRALFATE 1 GM TAB PO PRN (06:16)
[2024-11-13] MEDS ORDERED: ACETAMINOPHEN 325 MG TAB PO PRN (06:16)
[2024-11-13] MEDS: LOSARTAN POTASSIUM 25 MG TAB PO SCH (08:17)
[2024-11-13] MEDS: CYANOCOBALAMIN (B-12) 500 MCG TABLET PO SCH (08:17)
[2024-11-13 08:27] LABS: Iron 62.0 mcg/dl (35-150); Transferrin 262.0 mg/dl (200-360)
[2024-11-13 08:42] LABS: Hematocrit (blood only) 34.4 % (37.0-47.0); Hemoglobin 11.2 g/dl (12.0-16.0); Reticulocytes # 0.050 10^6/uL (0.020-0.100)
[2024-11-13 08:47] LABS: Ferritin 262.8 ng/ml (8-388)
[2024-11-13 08:51] LABS: Folate (Folic Acid),Ser orPlas > 22.30 ng/ml (>5.38)
[2024-11-13 08:52] LABS: Vitamin B12 663 pg/ml (180-914)
[2024-11-13 09:29] LABS: Hemoglobin A1C 5.8 % (4.5-5.6)
[2024-11-13] MEDS ORDERED: Heparin IV Adult Wt-Based Standard *NO* INITIAL Bolus Protocol IV STA (09:53)
[2024-11-13] MEDS: HEPARIN 25000 UNIT/500 ML D5W 25,000 UNITS/500 ML BAG IV SCH ×3 (10:53→21:16)
--- NOTE | 2024-11-13 11:01 | Cardiology Consultation ---
Date of Consultation November 13, 2024 Assessment & Plan (1) NSTEMI (non-ST elevated myocardial infarction): Patient with mild high-sensitivity troponin elevation that has trended up from 29-->210-->454 pg/ml . No symptoms of angina at present. Patient describes that she walks on a regular basis with no recent exertional symptoms. Echocardiogram reveals moderate left ventricular systolic dysfunction, LVEF in the range of 35 - 39%. Report of previous outpatient study performed in [place] in Oct 2023 describes ejection fraction in the range of 45-50 % Septal thinning and septal dyskinesis is noted on the present echocardiogram which is difficult to distinguish between injury/infarct, or dyssynchrony from chronic left bundle branch block. Patient with longstanding history of coronary artery disease, CABG 20 years ago and multiple stents. At present, it is difficult to discern if the patient has had a type II NSTEMI due to supply demand mismatch in setting of chronic coronary artery disease or for presenting symptoms overall cardiac. Discussed options with the patient and her daughter including medications plus invasive coronary angiography and revascularization if feasible or trial of conservative medication therapy. Patient prefers trial of medication therapy. * Hemoglobin stable, resume aspirin 81 mg daily * Proceed with 48 hours of unfractionated heparin infusion. Monitor platelet count. * Continue metoprolol succinate 12.5 mg daily,Losartan 25 mg daily, atorvastatin 20 mg daily * Agree with twice daily oral proton pump inhibitor therapy given previous epigastric discomfort. * Repeat troponin today at 1400 Stewart Pierce DO History of Present Illness Attending Physician: Austin Caba MD History of Present Illness Diane Shaw is an 88 year old female seen in cardiology consultation per the request of Dr Prescott. She is seen in the emergency department , room C12B. She was accompanied by her daughter , Kady, during my assessment. Patient notes Symptoms of dizziness, diarrhea, and vomiting onset two days ago. She notes a separate symptom of transient midline chest discomfort that took place after she had been having recurrent vomiting. She denies any fevers or chills or sick contacts at home. Her nauseousness is better at present. She notes a history of recent epigastric discomfort that occurs after meals that dates back to April,. She has reduced her portions, and per her description it sounds like she is really not eating much at all. She recently been seen by [facility] gastroenterology as an outpatient and upcoming EGD is tentatively planned. At present she is feeling well without any GI or cardiac complaints. PAST MEDICAL HISTORY Coronary heart disease, diagnosis dates back to 2004 with presenting symptoms of chest discomfort and right arm pain per her recollection.Cardiac catheterization performed 09/01/2004 at [place] revealed three-vessel coronary heart disease for which she underwent CABG with BYRD to LAD, saphenous vein graft to D1, D2, OM1 and the PDA. Repeat cardiac catheterization performed February 2005 documented occlusions of the vein grafts with patent BYRD to LAD. She underwent drug-eluting stents to the proximal and mid right coronary artery and mid LAD at that time. Most recent cardiac catheterization took place 02/28/2007 at [place] with noted recurrent chest discomfort and inferolateral ischemia on nuclear stress test. Report describes 70% distal left main stenosis. Patent BYRD to LAD. The LAD was noted to have a proximal 30% stenosis, mid LAD 80% in-stent restenosis obtuse marginal 1 was noted to have a stent with 20% in-stent restenosis, 80% proximal RCA stenosis and 90% mid RCA stenosis just prior to the previous mid RCA stent treated with drug-eluting stents to the proximal and mid RCA (Cypher stents) Chronic left bundle branch block 07/2015 right carotid endarterectomy - Carotid duplex performed within the [facility] [employer] [facility] 05/26/2021, right internal carotid artery with less than 50% stenosis, left internal carotid artery less than 50% stenosis Hypertension Dyslipidemia Echocardiogram, [facility], 10/11 LVEF 45-50%, with regional wall motion abnormalities described including severe hypokinesis of the basal inferior myocardium, mild hypokinesis of the apical anterior, mid anteroseptum, apical inferior, apical septal, apical lateral Allergies Allergy/AdvReac Type Severity Reaction Status Date / Time adhesive Allergy Intermediate rash Verified 11/13/24 01:29 cimetidine Allergy Intermediate rash Verified 11/13/24 01:29 ketorolac Allergy Intermediate EYE Verified 11/13/24 01:29 DROPS--ITCHY RASH Home Medications Medication Instructions Recorded Confirmed Type amitriptyline 10 mg tablet 10 mg PO HS 07/07/20 11/13/24 History aspirin 81 mg tablet,delayed 81 mg PO DAILY 07/07/20 11/13/24 History release (Jerzy Low Dose Aspirin) atorvastatin 20 mg tablet 20 mg PO HS 07/07/20 11/13/24 History cholecalciferol (vitamin D3) 25 25 mcg PO DAILY 07/07/20 11/13/24 History mcg (1,000 unit) tablet (Vitamin D3) cyanocobalamin (vitamin B-12) 1,000 mcg PO DAILY 07/07/20 11/13/24 History 1,000 mcg tablet (Vitamin B-12) metoprolol succinate 25 mg 12.5 mg PO HS 07/07/20 11/13/24 History tablet,extended release 24 hr acetaminophen 500 mg tablet 500 - 1,000 mg PO DIRECTED PRN 11/13/24 11/13/24 History (Tylenol Extra Strength) Pain famotidine 20 mg tablet 20 mg PO HS 11/13/24 11/13/24 History losartan 25 mg tablet 25 mg PO DAILY 11/13/24 11/13/24 History mirabegron 25 mg tablet,extended 25 mg PO HS 11/13/24 11/13/24 History release 24 hr (Myrbetriq) pantoprazole 40 mg tablet,delayed 40 mg PO BID 11/13/24 11/13/24 History release sucralfate 1 gram tablet (Carafate) 1 g PO TID PRN Acid Reflux 11/13/24 11/13/24 History Patient History Medical History CAD (coronary atherosclerotic disease) GERD (gastroesophageal reflux disease) Hyperlipidemia Hypertension Surgical History S/P CABG (coronary artery bypass graft) Social History Smoking Status: Former smoker Tobacco Type: Cigarettes Hx Alcohol Use: No Hx Substance Use: No Preferred Language: Wolof Corporate Responsibility Officer Required: No Beliefs That Will Affect Care: None Feels Safe at Home: Yes Review of Systems Review of Systems: All systems reviewed & are unremarkable except as noted in HPI & below Physical Exam Physical Exam: Temp Pulse Resp BP Pulse Ox O2 Del Method 36.8 C 92 H 18 105/72 96 Room Air 11/13/24 00:29 11/13/24 08:00 11/13/24 08:00 11/13/24 08:00 11/13/24 08:00 11/13/24 08:00 General: no acute distress and stated age, thin Eyes: conjunctiva are pink and non-injected, sclera clear Neck: normal jugular venous pulse, no hepatojugular reflux Chest: normal shape and normal respiratory effort Lungs: clear to auscultation and percussion Cardiac Exam: - regular heart sounds, no murmurs, rubs, or gallops, no jugular venous distention Abdomen: abdomen soft, non-tender, no abnormal masses and no hepatosplenomegaly Musculoskeletal: no gait disturbance, no weakness Extremities: no edema and no cyanosis Neuro:awake, conversant, follows commands, no focal motor deficits Psych: appropriate affect and insight. Results & Data Laboratory Results Cardiac Enzymes 11/13/24 11/13/24 11/13/24 Range/Units 00:55 04:12 07:45 AST 35 (13-39) U/L Troponin I High Sens 29.4 H 210.5 H* D 454.6 H* D (0-14) pg/ml B-Natriuretic Peptide (0-100) pg/ml 11/13/24 Range/Units 08:23 AST (13-39) U/L Troponin I High Sens (0-14) pg/ml B-Natriuretic Peptide 976 H (0-100) pg/ml Coagulation 11/13/24 11/13/24 11/13/24 Range/Units 00:55 02:27 08:23 PT Cancelled 12.0 B-Natriuretic Peptide 976 H (0-100) pg/ml CBC 11/13/24 11/13/24 Range/Units 00:55 08:23 WBC 8.42 (4.8-10.8) K/ul RBC 3.78 L (4.20-5.40) M/uL Hgb 11.8 L 11.2 L (12.0-16.0) g/dl Hct 36.0 L 34.4 L (37.0-47.0) % Plt Count 118 L (130-400) K/uL Neut # (Auto) 6.54 H (1.40-6.50) K/uL Lymph # (Auto) 0.98 L (1.20-3.40) K/uL [place] # (Auto) 0.74 H (0.11-0.59) K/uL Eos # (Auto) 0.10 (0.00-0.50) K/uL Baso # (Auto) 0.02 (0.00-0.20) K/uL Comprehensive Metabolic Panel 11/13/24 Range/Units 00:55 Sodium 141 (136-145) mmol/L Potassium 3.9 (3.5-5.1) mmol/L Chloride 108 H (98-107) mmol/L Carbon Dioxide 25 (21-32) mmol/L BUN 24 H (6-23) mg/dl Creatinine 1.03 (0.6-1.2) mg/dl Glucose 111 H (70-99(Fasting)) mg/dl Calcium 8.6 (8.6-10.3) mg/dl Direct Bilirubin 0.1 (0-0.2) mg/dl AST 35 (13-39) U/L ALT 28 (7-52) U/L Alkaline Phosphatase 106 H (34-104) U/L Total Protein 6.0 (6.0-8.3) gm/dl Albumin 3.6 (3.4-5.0) gm/dl Intake and Output 11/12/24 11/13/24 11/13/24 22:59 06:59 14:59 Intake Total 700 / 700 100 / 100 Balance 700 / 700 100 / 100 Intake: IV 700 / 700 100 / 100 Magnesium Sulfate / D5w 1 gm In 200 / 200 100 / 100 100 ml @ 50 mls/hr IV ONE STA Rx#:[id number] Sodium Chloride 0.9% 500 ml @ 500 / 500 999 mls/hr IV .Q31M ONE Rx#: [id number] Other: Weight 49.1 kg Weight Measurement Method Built in [facility] Diagnostic Findings EKG performed 11/13/2024 at 12:48 AM interpreted independently: Normal sinus rhythm 97 bpm, first-degree AV block, left bundle branch block, QRS duration 138 ms, relatively unchanged compared to 07/07/2020 Summary of transthoracic echocardiogram performed 11/13/2024: There is mild concentric left ventricular hypertrophy. The basal septum is thickened and angulated consistent with sigmoid septum. There is focal hypokinesis of the basal segment of the inferior wall and the basal segment of the posterior wall. The anteroseptum and septal hernandez are thin and dyskinetic with appearance consistent of scar versus dyssynchrony related to left bundle branch block. Left ventricular systolic function is moderately reduced. The qualitative left ventricular ejection fraction=35-39% There is trace mitral regurgitation. There is mild tricuspid regurgitation. The pulmonary artery systolic pressure is estimated to be 39 mm Hg (mildly elevated) PG Care Time/CCT Total # of Minutes Spent Total Time Spent with Patient: Total time spent is greater than 50% in coordination of care (as documented) at patient's floor/unit and/or counseling patient:60 minutes [place] [address] IN/OBS CONSULT LVL 4,60M Patient Type New History Comprehensive Exam Comprehensive Medical Decision Making Moderate Complexity Diagnoses NSTEMI (non-ST elevated myocardial infarction) I21.4 Time Spent (min) 60
[2024-11-13] MEDS: ASPIRIN 81 MG ECTAB PO SCH (11:59)
--- NOTE | 2024-11-13 13:58 | Gastrointestinal Consultation ---
Date of Consultation November 13, 2024 Assessment & Plan (1) NSTEMI (non-ST elevated myocardial infarction): -Continue treatment per cardiology recommendations (2) GERD (gastroesophageal reflux disease): -Continue Protonix 40 mg BID -Given absence of alarm symptoms and current NSTEMI under cardiology care, would defer inpatient EGD at this time -Continue to monitor H/H Supervising Physician Co-Signing Physician Notes I saw and examined this patient with our nurse practitioner and agree with her assessment and plan. Presented with chest pain. Found to have myocardial infarction with elevated troponins. She does have some underlying GI problems including acid reflux and IBS. She should ultimately follow-up with her doll eye setter who are from [facility] as an outpatient. She had tentatively been scheduled for an endoscopy for next week which has been canceled. History of Present Illness Reason for Consultation: Chest pain, elevated troponin Attending Physician: Austin Caba MD History of Present Illness Patient is an 88 yo female who is hospitalized for chest pain. GI has been consulted for this for consideration of EGD. Patient notes she was recently given Carafate as an outpatient but was struggling to swallow her pills. She has been taking Protonix 40 mg BID. She has an EGD scheduled with [facility] in the coming weeks for evaluation of her chest pain. She denies vomiting, hematemesis, melena. No dysphagia. H/H 11.2/34.4. Since admission her troponin has trended upwards from 29 to 210 to 454. Her echocardiogram was changed from previous study. Cardiology has seen the patient and discussed options moving forward regarding angiography/revascularization vs med therapy. She opted for medical therapy. At the time of my visit, she has no chest pain. She is on an IV heparin infusion. Allergies Allergy/AdvReac Type Severity Reaction Status Date / Time adhesive Allergy Intermediate rash Verified 11/13/24 01:29 cimetidine Allergy Intermediate rash Verified 11/13/24 01:29 ketorolac Allergy Intermediate EYE Verified 11/13/24 01:29 DROPS--ITCHY RASH Home Medications Medication Instructions Recorded Confirmed Type amitriptyline 10 mg tablet 10 mg PO HS 07/07/20 11/13/24 History aspirin 81 mg tablet,delayed 81 mg PO DAILY 07/07/20 11/13/24 History release (Jerzy Low Dose Aspirin) atorvastatin 20 mg tablet 20 mg PO HS 07/07/20 11/13/24 History cholecalciferol (vitamin D3) 25 25 mcg PO DAILY 07/07/20 11/13/24 History mcg (1,000 unit) tablet (Vitamin D3) cyanocobalamin (vitamin B-12) 1,000 mcg PO DAILY 07/07/20 11/13/24 History 1,000 mcg tablet (Vitamin B-12) metoprolol succinate 25 mg 12.5 mg PO HS 07/07/20 11/13/24 History tablet,extended release 24 hr acetaminophen 500 mg tablet 500 - 1,000 mg PO DIRECTED PRN 11/13/24 11/13/24 History (Tylenol Extra Strength) Pain famotidine 20 mg tablet 20 mg PO HS 11/13/24 11/13/24 History losartan 25 mg tablet 25 mg PO DAILY 11/13/24 11/13/24 History mirabegron 25 mg tablet,extended 25 mg PO HS 11/13/24 11/13/24 History release 24 hr (Myrbetriq) pantoprazole 40 mg tablet,delayed 40 mg PO BID 11/13/24 11/13/24 History release sucralfate 1 gram tablet (Carafate) 1 g PO TID PRN Acid Reflux 11/13/24 11/13/24 History Patient History Medical History CAD (coronary atherosclerotic disease) GERD (gastroesophageal reflux disease) Hyperlipidemia Hypertension Surgical History S/P CABG (coronary artery bypass graft) Social History Smoking Status: Former smoker Tobacco Type: Cigarettes Hx Alcohol Use: No Hx Substance Use: No Preferred Language: Micronesian Communication Ability: Effective Vp Global Required: No Beliefs That Will Affect Care: None Feels Safe at Home: Yes Assistive Devices: Glasses and Walker Review of Systems Constitutional: no fever and no chills Respiratory: no cough and no dyspnea Cardiovascular: no chest pain Gastrointestinal: no abdominal pain, no nausea, no coffee ground emesis, no hematemesis, no dysphagia, no blood in stools and no melena Physical Exam Constitutional: well developed Respiratory: normal respiratory effort Cardiovascular: Rate/Rhythm: + tachycardic Gastrointestinal (Abdomen): normal bowel sounds, soft, nontender, no hepatosplenomegaly Results & Data Vital Signs (Past 12 Hours) Vital Signs Pulse Pulse Resp BP BP Pulse Ox Pulse Ox 11/13/24 12:00 96 H 14 119/73 97 11/13/24 11:00 94 H 14 123/70 96 11/13/24 08:00 92 H 18 105/72 96 11/13/24 07:29 91 11/13/24 07:29 98 H 17 121/75 91 11/13/24 06:56 97 H 11/13/24 06:28 97 H 20 121/75 96 11/13/24 05:04 92 H 11/13/24 04:30 96 H 18 122/74 100 11/13/24 03:30 98 H 18 123/76 95 11/13/24 03:00 98 H 18 113/71 97 11/13/24 02:00 96 H 16 92 11/13/24 02:00 123/76 O2 Del Method O2 Del Method 11/13/24 12:00 Room Air 11/13/24 11:00 Room Air 11/13/24 08:00 Room Air 11/13/24 07:29 Room Air 11/13/24 07:29 Room Air 11/13/24 06:56 11/13/24 06:28 Room Air 11/13/24 05:04 11/13/24 04:30 11/13/24 03:30 11/13/24 03:00 11/13/24 02:00 11/13/24 02:00 PG Care Time/CCT Total # of Minutes Spent Total Time Spent with Patient: Total time spent is greater than 50% in coordination of care (as documented) at patient's floor/unit and/or counseling patient: Coding Level of Care Code 86828 INT INP/OBS CARE 2/55MIN Diagnoses NSTEMI (non-ST elevated myocardial infarction) I21.4 GERD (gastroesophageal reflux disease) K21.9
--- NOTE | 2024-11-13 15:05 | Communication Note ---
Date of Service: November 13, 2024 Patient seen and examined at bedside. She is lying comfortably on the bed; not in distress. She denies any pain or discomfort at this time. She is being started on heparin drip for NSTEMI. On physical examination; Constitutional: Awake alert oriented x 3; not in distress. Respiratory: normal respiratory effort, lungs clear to auscultation, no wheeze, rales, rhonchi. Normal insp/exp effort, no accessory muscle use Cardiovascular: RRR, no murmur, no edema Vessels: no JVD or carotid bruit Chest: normal inspection of chest Abdomen: Soft, nontender. Musculoskeletal: no cyanosis or clubbing, extremities motor strength 5/5 Skin: no rashes, warm and dry normal turgor Neurologic: PERRL, EOMI, accommodation nl, no face palsy, no dysarthria CN's II- XI intact bilaterally and moves all extremities Psychiatric: A+Ox3, euthymic affect Assessment/plan NSTEMIhistory of CABG, multiple stents; high sensitive troponin up trended. Started on heparin drip, continue on aspirin, Lipitor. GERDcontinue on Protonix twice daily along with Carafate. Full progress note to follow tomorrow Please note the above document was generated using voice recognition software. It may contain grammatical, syntax or spelling errors. Any formal questions or concerns about the content, text or information contained within the body of this dictation should be directly addressed to the provider for clarification
[2024-11-13 18:06] LABS: ANTI-Xa, UFH(UnfractionatedHep 0.91 IU/ml (0.3-0.7)
--- NOTE | 2024-11-13 18:36 | Electrocardiogram Report ---
Test Reason : Blood Pressure : */* mmHG Vent. Rate : 97 BPM Atrial Rate : 97 BPM P-R Int : 200 ms QRS Dur : 138 ms QT Int : 366 ms P-R-T Axes : 68 5 156 degrees QTcB Int : 464 ms Normal sinus rhythm Left bundle branch block Abnormal ECG When compared with ECG of 07-Jul-2020 00:16, No significant change was found Confirmed by Yao De Los Santos ([id number]) on 11/13/2024 6:36:15 PM Referred By: REFERRED SELF Confirmed By: Yao De Los Santos
[2024-11-13] MEDS: ATORVASTATIN 20 MG TAB PO SCH (21:29)
[2024-11-13] MEDS: VIBEGRON 75 MG TAB PO SCH (21:29)
[2024-11-13] MEDS: METOPROLOL SUCC 25MG EXT REL TAB PO SCH (21:29)
[2024-11-13] MEDS: FAMOTIDINE 20 MG TAB PO SCH (21:32)
[2024-11-14 01:35] LABS: ANTI-Xa, UFH(UnfractionatedHep 0.72 IU/ml (0.3-0.7)
[2024-11-14 08:16] LABS: Hematocrit (blood only) 38.8 % (37.0-47.0); Hemoglobin 12.9 g/dl (12.0-16.0); Immature Granulocytes # (auto) 0.06 K/uL (0.01-0.20); Immature Granulocytes % (auto) 0.6 %; Mean Corpuscular Hemoglobin 31.7 pg (25.0-34.0); Mean Corpuscular Volume 95.3 fL (80.0-100.0); Platelet Count 149 K/uL (130-400); RDW Standard Deviation 47.8 fL (36.4-46.3); Red Blood Count 4.07 M/uL (4.20-5.40); White Blood Count 9.57 K/ul (4.8-10.8)
[2024-11-14] MEDS: SODIUM CHLORIDE 0.9% 500 ML IV ONE (08:25)
[2024-11-14 08:31] LABS: Anion Gap 7.0 (3-11); Blood Urea Nitrogen 27.0 mg/dl (6-23); Calcium 8.3 mg/dl (8.6-10.3); Carbon Dioxide 24.0 mmol/L (21-32); Chloride 107.0 mmol/L (98-107); Creatinine Clr Calc Pharmacy 32.3 ml/min; Glucose 129.0 mg/dl (70-99(Fasting)); Magnesium 2.3 mg/dl (1.7-2.4); Potassium 4.5 mmol/L (3.5-5.1); Sodium 138.0 mmol/L (136-145)
[2024-11-14 08:32] LABS: ANTI-Xa, UFH(UnfractionatedHep 0.82 IU/ml (0.3-0.7)
[2024-11-14] MEDS: SODIUM CHLORIDE 0.9% 1,000 ML IV SCH (09:14)
--- NOTE | 2024-11-14 11:39 | Hospitalist Progress Note ---
Date of Service November 14, 2024 Assessment & Plan (1) NSTEMI (non-ST elevated myocardial infarction): (2) GERD (gastroesophageal reflux disease): Plan Patient is a 88-year-old female with past medical history of chronic systolic heart failure, CAD status post CABG/stent, chronic LBBB, peripheral vascular disease, hypertension, hyperlipidemia who presents to the hospital with epigastric pain, nausea and vomiting. NSTEMI History of CAD status post CABG/stent Patient presented to the hospital with epigastric pain, nausea/vomiting. EKG on admission showed normal sinus rhythm with left bundle branch block. High-sensitivity troponin was 29 on admission which up trended to 806 and downtrended. Echocardiogram shows focal hypokinesis of the basal segment of the inferior wall and the basal segment of the posterior wall. EF of 35 to 39%. Patient being treated with heparin; continue on aspirin and Lipitor. Losartan on hold due to hypotension. IV fluids started for hypotension. GERDcontinue on Protonix, Carafate and famotidine. Hypertensionlosartan on hold; continue on metoprolol. Hyperlipidemiacontinue on Lipitor DNR/DNI DVT prophylaxis heparin Time spent evaluating patient, direct bedside care, chart review, placing orders, interpretation of diagnostic studies, discussion with consultants, patient, and family members, as well as other required patient management activities is 50 minutes Please note the above document was generated using voice recognition software. It may contain grammatical, syntax or spelling errors. Any formal questions or concerns about the content, text or information contained within the body of this dictation should be directly addressed to the provider for clarification Admission and Anticipated Discharge Date Admission Date: November 13, 2024 Subjective Patient seen and examined at bedside. She reports feeling dizzy while trying to stand up and go to the bathroom. Blood pressure on the softer side. Denies any chest pain overnight. Review of Systems Review of Systems: All systems reviewed & are unremarkable except as noted in Subjective Physical Exam Physical Exam: Constitutional: Awake, alert oriented x 3; not in any distress. Respiratory: Bilateral vesicular breath sound Cardiovascular: RRR, no murmur, no edema Vessels: no JVD or carotid bruit Chest: normal inspection of chest Abdomen: Soft, nontender. Musculoskeletal: no cyanosis or clubbing, extremities motor strength 5/5 Skin: no rashes, warm and dry normal turgor Neurologic: PERRL, EOMI, accommodation nl, no face palsy, no dysarthria CN's II- XI intact bilaterally and moves all extremities Psychiatric: A+Ox3, euthymic affect Results & Data Results & Data Vital Signs (Past 12 Hours) Vital Signs Temp Pulse Pulse Resp BP Pulse Ox O2 Del Method 11/14/24 11:14 36.7 C 83 21 118/75 95 Room Air 11/14/24 08:00 90 11/14/24 07:42 36.7 C 105 H 21 92/61 L 96 Room Air 11/14/24 03:15 36.9 C 101 H 17 90/61 L 94 Room Air 11/14/24 00:00 107 H (2) GERD (gastroesophageal reflux disease) Esophagitis bleeding: without hemorrhage Esophagitis presence: with esophagitis Qualified Code(s): K21.00 - Gastro-esophageal reflux disease with esophagitis, without bleeding
--- NOTE | 2024-11-14 11:46 | Cardiology Progress Note ---
Date of Service November 14, 2024 Assessment & Plan (1) NSTEMI (non-ST elevated myocardial infarction): Plan: 88 year old female with longstanding history of coronary artery disease, CABG 20 years ago and multiple stents (follows with cardiology in [place]) who presented via the emergency department on 11/13/2024 with 2 days of dizziness, diarrhea, vomiting. Patient with mild high-sensitivity troponin elevation that has trended up from 29-->210-->454 -->806-->565 pg/ml . No symptoms of angina at present. Patient describes that she walks on a regular basis with no recent exertional symptoms. Echocardiogram Performed 11/13/2024, revealed moderate left ventricular systolic dysfunction, LVEF in the range of 35 - 39%. Report of previous outpatient study performed in [place] in Oct 2023 describes ejection fraction in the range of 45-50 % .Septal thinning and septal dyskinesis is noted on the present echocardiogram which is difficult to distinguish between injury/infarct, or dyssynchrony from chronic left bundle branch block. Presentation compatible with type II NSTEMI due to supply demand mismatch in setting of chronic coronary artery disease and non cardiac illness. At time of initial consultation of 11/13/24, options with the patient and her daughter including medications plus invasive coronary angiography and revascularization if feasible or trial of conservative medication therapy. Patient prefers trial of medication therapy. * Continue prior to hospital treatment aspirin 81 mg daily. Clopidogrel not added due to GI complaints, frailty, bleeding risk * Proceed with 48 hours of unfractionated heparin infusion would conclude the af ternoon of 11/15/24. * Continue metoprolol succinate 12.5 mg daily,Losartan 25 mg daily, atorvastatin 20 mg daily * Agree with twice daily oral proton pump inhibitor therapy given previous epigastric discomfort. Stewart Pierce, DO Admission and Anticipated Discharge Date Admission Date: November 13, 2024 Subjective Patient seen in cardiology follow-up. She noted some dizziness and diarrhea this morning. Denies any chest or epigastric discomfort. Denies shortness of breath. Telemetry reveals sinus rhythm in the 80s to 90s with brief run of SVT noted last evening at 2111. Review of Systems Review of Systems: All systems reviewed & are unremarkable except as noted in HPI & below Physical Exam Physical Exam: Temp Pulse Resp BP Pulse Ox O2 Del Method 36.7 C 83 21 118/75 95 Room Air 11/14/24 11:14 11/14/24 11:14 11/14/24 11:14 11/14/24 11:14 11/14/24 11:14 11/14/24 11:14 General: no acute distress and stated age, thin Eyes: conjunctiva are pink and non-injected, sclera clear Neck: normal jugular venous pulse, no hepatojugular reflux Chest: normal shape and normal respiratory effort Lungs: clear to auscultation and percussion Cardiac Exam: - regular heart sounds, no murmurs, rubs, or gallops, no jugular venous distention Abdomen: abdomen soft, non-tender, no abnormal masses and no hepatosplenomegaly Musculoskeletal: no gait disturbance, no weakness Extremities: no edema and no cyanosis Neuro:awake, conversant, follows commands, no focal motor deficits Psych: appropriate affect and insight. Results & Data Vital Signs (Past 12 Hours) Vital Signs Temp Pulse Pulse Resp BP Pulse Ox O2 Del Method 11/14/24 11:14 36.7 C 83 21 118/75 95 Room Air 11/14/24 08:00 90 11/14/24 07:42 36.7 C 105 H 21 92/61 L 96 Room Air 11/14/24 03:15 36.9 C 101 H 17 90/61 L 94 Room Air 11/14/24 00:00 107 H Laboratory Results Cardiac Enzymes 11/13/24 11/14/24 Range/Units 14:18 07:51 Troponin I High Sens 806.0 H* D 565.0 H* D (0-14) pg/ml CBC 11/14/24 Range/Units 07:51 WBC 9.57 (4.8-10.8) K/ul RBC 4.07 L (4.20-5.40) M/uL Hgb 12.9 (12.0-16.0) g/dl Hct 38.8 (37.0-47.0) % Plt Count 149 (130-400) K/uL Neut # (Auto) 7.04 H (1.40-6.50) K/uL Lymph # (Auto) 1.36 (1.20-3.40) K/uL Storey # (Auto) 0.87 H (0.11-0.59) K/uL Eos # (Auto) 0.20 (0.00-0.50) K/uL Baso # (Auto) 0.04 (0.00-0.20) K/uL Comprehensive Metabolic Panel 11/14/24 Range/Units 07:51 Sodium 138 (136-145) mmol/L Potassium 4.5 (3.5-5.1) mmol/L Chloride 107 (98-107) mmol/L Carbon Dioxide 24 (21-32) mmol/L BUN 27 H (6-23) mg/dl Creatinine 0.97 (0.6-1.2) mg/dl Glucose 129 H (70-99(Fasting)) mg/dl Calcium 8.3 L (8.6-10.3) mg/dl Intake and Output 11/13/24 11/14/24 11/14/24 22:59 06:59 14:59 Intake Total 260.35 / 533.60 73.25 / 533.60 595.200 / 595.200 Output Total Balance 260.35 / 533.60 73.25 / 533.60 594.200 / 594.200 Intake: IV 260.35 / 533.60 73.25 / 533.60 595.200 / 595.200 Heparin 84457 Unit/500 ml D5w 160.35 / 233.60 73.25 / 233.60 95.200 / 95.200 25,000 units In 500 ml @ 700 UNITS/HR 14 mls/hr IV .Q24H [facility] Rx#:[id number] Magnesium Sulfate / D5w 1 gm In 100 / 200 100 ml @ 50 mls/hr IV Q2H [facility] Rx#:[id number] Sodium Chloride 0.9% 500 ml @ 500 / 500 999 mls/hr IV .Q31M ONE Rx#: [id number] Output: # Bowel Movements / Other: # Unmeasured Voids 1 [place] [address] SUB INP/OBS CARE 3/50MIN Patient Type New History Detailed Exam Detailed Medical Decision Making Moderate Complexity Diagnoses NSTEMI (non-ST elevated myocardial infarction) I21.4
[2024-11-14] MEDS: PROMETHAZINE 6.25 MG/50.25 ML BAG IV PRN (15:31)
[2024-11-14 16:40] LABS: ANTI-Xa, UFH(UnfractionatedHep 0.56 IU/ml (0.3-0.7)
[2024-11-15 06:33] LABS: ANTI-Xa, UFH(UnfractionatedHep 0.55 IU/ml (0.3-0.7)
[2024-11-15 07:59] LABS: Anion Gap 4.0 (3-11); Blood Urea Nitrogen 23.0 mg/dl (6-23); Calcium 7.6 mg/dl (8.6-10.3); Carbon Dioxide 26.0 mmol/L (21-32); Chloride 112.0 mmol/L (98-107); Creatinine Clr Calc Pharmacy 29.7 ml/min; Glucose 99.0 mg/dl (70-99(Fasting)); Potassium 4.3 mmol/L (3.5-5.1); Sodium 142.0 mmol/L (136-145)
[2024-11-15 08:11] LABS: Hematocrit (blood only) 32.2 % (37.0-47.0); Hemoglobin 10.7 g/dl (12.0-16.0); Immature Granulocytes # (auto) 0.02 K/uL (0.01-0.20); Immature Granulocytes % (auto) 0.4 %; Mean Corpuscular Hemoglobin 31.8 pg (25.0-34.0); Mean Corpuscular Volume 95.8 fL (80.0-100.0); Platelet Count 123 K/uL (130-400); RDW Standard Deviation 48.9 fL (36.4-46.3); Red Blood Count 3.36 M/uL (4.20-5.40); White Blood Count 5.15 K/ul (4.8-10.8)
--- NOTE | 2024-11-15 11:25 | Cardiology Progress Note ---
Date of Service November 15, 2024 Assessment & Plan (1) NSTEMI (non-ST elevated myocardial infarction): (2) Left bundle branch block: (3) Elevated troponin: (4) Hypotension: Plan 88 year old female with longstanding history of coronary artery disease, CABG 20 years ago and multiple stents (follows with cardiology in [place]) who presented via the emergency department on 11/13/2024 with 2 days of dizziness, diarrhea, vomiting. High-sensitivity troponin elevation 29.4 - > 210.5 -> 454.6 -> 806.0 -> 565.0 pg/mL. No overt angina symptoms. Echocardiography revealed moderate left ventricular systolic dysfunction, LVEF 35 - 39%. Report of previous outpatient study performed in [place] in Oct 2023 describes ejection fraction in the range of 45-50%. Septal thinning and septal dyskinesis is noted on the present echocardiogram which is difficult to distinguish between injury/infarct, or dyssynchrony from chronic left bundle branch block. Presentation compatible with type II NSTEMI due to supply demand mismatch in setting of chronic coronary artery disease and non cardiac illness. Patient requesting conservative medical management. Recommendations: * Discontinue unfractionated heparin infusion, RE: 2+ gram drop in hemoglobin and mild thrombocytopenia without overt bleeding, asymptomatic from an overt angina standpoint * Hold losartan for now secondary to hypotension * Continue beta-shlomo (metoprolol succinate 12.5 mg/day, aspirin 81 mg/day, statin (atorvastatin 20 mg/day), and twice daily PPI * Clopidogrel not added due to GI complaints, frailty, bleeding risk Admission and Anticipated Discharge Date Admission Date: November 13, 2024 Supervising Physician Co-Signing Physician Notes I have personally performed a history and physical examination on the patient. I have reviewed the advance practitioner's documentation, and I agree with, and take responsibility for the plan of care. 88-year-old female with type II NSTEMI and moderate LV systolic dysfunction. Recovering well from a cardiovascular perspective. Recommend discontinuation of IV heparin with drop in hemoglobin and mild thrombocytopenia. Continue beta- shlomo, aspirin, statin, and PPI. Losartan will remain on hold due to borderline hypotension. Possible discharge in 48 hours. Trent Henson DO, [facility] Subjective Late entry. Patient seen and examined earlier this morning. Chart, medications, telemetry reviewed. Son at bedside. No further GI upset, eating without issue. No chest pain, shortness of breath, or palpitations. Telemetry: Sinus in the 60s at present, sinus throughout with heart rates predominantly in the 60s to 90s Review of Systems Review of Systems: Complete review of systems is otherwise as stated above, negative, or noncontributory Physical Exam Physical Exam: General: A&Ox3. NAD. HENT: Normocephalic. Atraumatic. Eyes: PER. Conjunctiva pink, sclera clear. Neck: No JVD. Bilateral carotid bruits. Heart: RRR, 70 bpm. No murmur. Lungs: Clear to auscultation. Abdomen: +BS. Soft. Nontender. No masses or organomegaly. Extremities: Healing ecchymosis on all extremities. No clubbing. No cyanosis. Limited neurological examination is without focal deficits. Pulses: radial=2/4, posterior tibial=2/4. Results & Data Vital Signs (Past 12 Hours) Vital Signs Temp Pulse Pulse Resp BP Pulse Ox O2 Del Method 11/15/24 11:06 36.7 C 96 Room Air 11/15/24 07:45 36.6 C 75 21 93/56 L 97 Room Air 11/15/24 07:06 73 11/15/24 03:56 36.7 C 67 16 92/55 L 97 Room Air 11/15/24 00:10 36.6 C 81 20 122/71 97 Room Air Laboratory Results CBC 11/15/24 Range/Units 07:21 WBC 5.15 (4.8-10.8) K/ul RBC 3.36 L (4.20-5.40) M/uL Hgb 10.7 L (12.0-16.0) g/dl Hct 32.2 L (37.0-47.0) % Plt Count 123 L (130-400) K/uL Neut # (Auto) 3.20 (1.40-6.50) K/uL Lymph # (Auto) 0.99 L (1.20-3.40) K/uL Snyder # (Auto) 0.59 (0.11-0.59) K/uL Eos # (Auto) 0.32 (0.00-0.50) K/uL Baso # (Auto) 0.03 (0.00-0.20) K/uL Comprehensive Metabolic Panel 11/15/24 Range/Units 07:21 Sodium 142 (136-145) mmol/L Potassium 4.3 (3.5-5.1) mmol/L Chloride 112 H (98-107) mmol/L Carbon Dioxide 26 (21-32) mmol/L BUN 23 (6-23) mg/dl Creatinine 0.93 (0.6-1.2) mg/dl Glucose 99 (70-99(Fasting)) mg/dl Calcium 7.6 L (8.6-10.3) mg/dl Intake and Output 11/14/24 11/15/24 11/15/24 22:59 06:59 14:59 Intake Total 1166.45 / 1813.050 51.4 / 1813.050 89.8 / 89.8 Output Total Balance 1166.45 / 1812.050 51.4 / 1812.050 88.8 / 88.8 Intake: IV 1166.45 / 1813.050 51.4 / 1813.050 89.8 / 89.8 Heparin 90838 Unit/500 ml D5w 116.2 / 262.800 51.4 / 262.800 89.8 / 89.8 25,000 units In 500 ml @ 600 UNITS/HR 12 mls/hr IV .Q24H [facility] Rx#:[id number] Promethazine 6.25 mg In 50.25 50.25 / 50.25 ml @ 201 mls/hr IV Q6H PRN Rx#: [id number] Sodium Chloride 0.9% 1,000 ml @ 1000 / 1000 80 mls/hr IV .[id number] [facility] Rx#: [id number] Output: # Bowel Movements Other: # Unmeasured Voids Weight 43.3 kg Diagnostic Findings November 13, 2024 TTE: Mild concentric LVH. Basal septum is thickened and angulated consistent with sigmoid septum. Focal hypokinesis of the basal segment of the inferior wall and basal segment of the posterior wall. Anteroseptum and septal hernandez are thinned and dyskinetic with appearance consistent of scar versus dyssynchrony related to left bundle branch block. Left ventricular systolic function moderately reduced. LVEF 35 to 40%. Trace mitral regurgitation. Mild tricuspid regurgitation. Pulmonary artery systolic pressure 39 mmHg (mildly elevated) PG Care Time/CCT Total # of Minutes Spent Total Time Spent with Patient: Total time spent is greater than 50% in coordination of care (as documented) at patient's floor/unit and/or counseling patient: Coding Level of Care Code 17393 SUB INP/OBS CARE 350MIN Diagnoses NSTEMI (non-ST elevated myocardial infarction) I21.4 Left bundle branch block I44.7 Elevated troponin R79.89 Hypotension I95.9
--- NOTE | 2024-11-15 12:42 | Hospitalist Progress Note ---
Date of Service November 15, 2024 Assessment & Plan (1) NSTEMI (non-ST elevated myocardial infarction): (2) GERD (gastroesophageal reflux disease): Plan Patient is a 88-year-old female with past medical history of chronic systolic heart failure, CAD status post CABG/stent, chronic LBBB, peripheral vascular disease, hypertension, hyperlipidemia who presents to the hospital with epigastric pain, nausea and vomiting. NSTEMI History of CAD status post CABG/stent Patient presented to the hospital with epigastric pain, nausea/vomiting. EKG on admission showed normal sinus rhythm with left bundle branch block. High-sensitivity troponin was 29 on admission which up trended to 806 and downtrended. Echocardiogram shows focal hypokinesis of the basal segment of the inferior wall and the basal segment of the posterior wall. EF of 35 to 39%. Patient was treated with IV heparin; continue aspirin and Lipitor. No recurrence of epigastric pain. Losartan on hold for hypertension Continue on metoprolol GERDcontinue on Protonix, Carafate and famotidine. Hypertensionlosartan on hold; continue on metoprolol. Hyperlipidemiacontinue on Lipitor DNR/DNI DVT prophylaxis heparin Time spent evaluating patient, direct bedside care, chart review, placing orders, interpretation of diagnostic studies, discussion with consultants, patient, and family members, as well as other required patient management activities is 50 minutes Please note the above document was generated using voice recognition software. It may contain grammatical, syntax or spelling errors. Any formal questions or concerns about the content, text or information contained within the body of this dictation should be directly addressed to the provider for clarification Admission and Anticipated Discharge Date Admission Date: November 13, 2024 Subjective Patient seen and examined at bedside. Comfortable; not in distress. Denies fever, chills, chest pain, shortness of breath, abdominal pain or urinary symptoms. No significant overnight events Review of Systems Review of Systems: All systems reviewed & are unremarkable except as noted in Subjective Physical Exam Physical Exam: Constitutional: Awake, alert oriented x 3; not in any distress. Respiratory: Bilateral vesicular breath sound Cardiovascular: RRR, no murmur, no edema Vessels: no JVD or carotid bruit Chest: normal inspection of chest Abdomen: Soft, nontender. Musculoskeletal: no cyanosis or clubbing, extremities motor strength 5/5 Skin: no rashes, warm and dry normal turgor Neurologic: PERRL, EOMI, accommodation nl, no face palsy, no dysarthria CN's II- XI intact bilaterally and moves all extremities Psychiatric: A+Ox3, euthymic affect Results & Data Results & Data Vital Signs (Past 12 Hours) Vital Signs Temp Pulse Pulse Resp BP Pulse Ox O2 Del Method 11/15/24 11:06 36.7 C 96 Room Air 11/15/24 07:45 36.6 C 75 21 93/56 L 97 Room Air 11/15/24 07:06 73 11/15/24 03:56 36.7 C 67 16 92/55 L 97 Room Air (2) GERD (gastroesophageal reflux disease) Esophagitis bleeding: without hemorrhage Esophagitis presence: with esophagitis Qualified Code(s): K21.00 - Gastro-esophageal reflux disease with esophagitis, without bleeding
[2024-11-16 06:25] LABS: ANTI-Xa, UFH(UnfractionatedHep < 0.10 IU/ml (0.3-0.7)
--- NOTE | 2024-11-16 11:12 | Cardiology Progress Note ---
Date of Service November 16, 2024 Assessment & Plan (1) NSTEMI (non-ST elevated myocardial infarction): (2) Left bundle branch block: (3) Elevated troponin: (4) Hypotension: Plan 88 year old female with longstanding history of coronary artery disease, CABG 20 years ago and multiple stents (follows with cardiology in [place]) who presented via the emergency department on 11/13/2024 with 2 days of dizziness, diarrhea, vomiting. High-sensitivity troponin elevation 29.4 - > 210.5 -> 454.6 -> 806.0 -> 565.0 pg/mL. No overt angina symptoms. Echocardiography revealed moderate left ventricular systolic dysfunction, LVEF 35 - 39%. Report of previous outpatient study performed in [place] in Oct 2023 describes ejection fraction in the range of 45-50%. Septal thinning and septal dyskinesis is noted on the present echocardiogram which is difficult to distinguish between injury/infarct, or dyssynchrony from chronic left bundle branch block. Presentation compatible with type II NSTEMI due to supply demand mismatch in setting of chronic coronary artery disease and non cardiac illness. Patient requesting conservative medical management. Blood pressure improved off of losartan Recommendations: * Continue beta-shlomo (metoprolol succinate 12.5 mg/day) and aspirin 81 mg/day * Continue without losartan for now, RE: hypotension * Clopidogrel not added due to GI complaints, frailty, bleeding risk * Change atorvastatin 20 mg/day to rosuvastatin 10 mg/day, maybe aiding GI co mplaints? * Increase activity as tolerated Admission and Anticipated Discharge Date Admission Date: November 13, 2024 Supervising Physician Co-Signing Physician Notes I have personally performed a history and physical examination on the patient. I have reviewed the advance practitioner's documentation, and I agree with, and take responsibility for the plan of care. 88-year-old female with type II NSTEMI and moderate LV systolic dysfunction. Recovering well from a cardiovascular perspective. IV heparin discontinued. Hemoglobin and platelet count stable.Continue beta-shlomo, aspirin, statin, and PPI. Losartan will remain on hold due to borderline hypotension.Consider restarting as outpatient. No further inpatient cardiac testing intervention recommended at this time. Cardiology will sign off, please call with additional concerns/questions. Trent Henson DO, [facility] Subjective Patient seen and examined earlier this morning. Chart, medications, telemetry reviewed. Notes feeling sick in the stomach after supper last night, nausea and vomiting. Fatty foods seem to aggravate things. No issues eating breakfast this morning. Feels well at present. No chest pain, palpitations, shortness of breath, orthopnea, PND, or peripheral edema. Review of Systems Review of Systems: Complete review of systems is otherwise as stated above, negative, or noncontributory Physical Exam Physical Exam: General: A&Ox3. NAD. HENT: Normocephalic. Atraumatic. Eyes: PER. Conjunctiva pink, sclera clear. Neck: No JVD. Bilateral carotid bruits. Heart: RRR, 70 bpm. No murmur. Lungs: Clear to auscultation. Abdomen: +BS. Soft. Nontender. No masses or organomegaly. Extremities: Healing ecchymosis on all extremities. No clubbing. No cyanosis. Limited neurological examination is without focal deficits. Pulses: radial=2/4, posterior tibial=2/4. Results & Data Vital Signs (Past 12 Hours) Vital Signs Temp Pulse Resp BP BP Pulse Ox O2 Del Method 11/16/24 07:41 36.6 C 70 21 108/67 97 Room Air 11/16/24 03:25 36.6 C 70 17 93/41 L 96 Room Air 11/15/24 23:43 36.7 C 73 16 120/51 L 98 Room Air Laboratory Results Intake and Output 11/15/24 11/16/24 11/16/24 22:59 06:59 14:59 Intake Total 50.25 / 197.05 Balance 50.25 / 196.05 Intake: IV 50.25 / 197.05 Promethazine 6.25 mg In 50.25 50.25 / 50.25 ml @ 201 mls/hr IV Q6H PRN Rx#: [id number] Other: # Unmeasured Voids 2 1 1 # Emeses 1 Weight 43.3 kg Diagnostic Findings Telemetry: Sinus in the 70's. PG Care Time/CCT Total # of Minutes Spent Total Time Spent with Patient: Time spent evaluating patient, direct bedside care, interpretation of diagnostic studies, chart review, placing orders, discussion with other providers and/or family members, etc: 36 minutes Total time spent is greater than 50% in coordination of care (as documented) at patient's floor/unit and/or counseling patient Coding Level of Care Code 07131 SUB INP/OBS CARE MIN Diagnoses NSTEMI (non-ST elevated myocardial infarction) I21.4 Left bundle branch block I44.7 Elevated troponin R79.89 Hypotension I95.9
[2024-11-16 11:52] LABS: Hematocrit (blood only) 33.5 % (37.0-47.0); Hemoglobin 10.8 g/dl (12.0-16.0); Mean Corpuscular Hemoglobin 30.6 pg (25.0-34.0); Mean Corpuscular Volume 94.9 fL (80.0-100.0); Platelet Count 142 K/uL (130-400); RDW Standard Deviation 48.7 fL (36.4-46.3); Red Blood Count 3.53 M/uL (4.20-5.40); White Blood Count 6.26 K/ul (4.8-10.8)
[2024-11-16 12:07] LABS: Anion Gap 8.0 (3-11); Blood Urea Nitrogen 24.0 mg/dl (6-23); Calcium 8.6 mg/dl (8.6-10.3); Carbon Dioxide 22.0 mmol/L (21-32); Chloride 111.0 mmol/L (98-107); Creatinine Clr Calc Pharmacy 30.7 ml/min; Glucose 82.0 mg/dl (70-99(Fasting)); Potassium 4.5 mmol/L (3.5-5.1); Sodium 141.0 mmol/L (136-145)
--- NOTE | 2024-11-16 13:23 | Hospitalist Progress Note ---
Date of Service November 16, 2024 Assessment & Plan (1) NSTEMI (non-ST elevated myocardial infarction): (2) GERD (gastroesophageal reflux disease): Plan Patient is a 88-year-old female with past medical history of chronic systolic heart failure, CAD status post CABG/stent, chronic LBBB, peripheral vascular disease, hypertension, hyperlipidemia who presents to the hospital with epigastric pain, nausea and vomiting. NSTEMI History of CAD status post CABG/stent Patient presented to the hospital with epigastric pain, nausea/vomiting. EKG on admission showed normal sinus rhythm with left bundle branch block. High-sensitivity troponin was 29 on admission which up trended to 806 and downtrended. Echocardiogram shows focal hypokinesis of the basal segment of the inferior wall and the basal segment of the posterior wall. EF of 35 to 39%. Patient was treated with IV heparin; continue aspirin and Lipitor. No recurrence of epigastric pain. Losartan on hold for hypertension Continue on metoprolol PT/OT eval GERDcontinue on Protonix, Carafate and famotidine. Hypertensionlosartan on hold; continue on metoprolol. will dc on discharge. Hyperlipidemiacontinue on Lipitor DNR/DNI DVT prophylaxis heparin Time spent evaluating patient, direct bedside care, chart review, placing orders, interpretation of diagnostic studies, discussion with consultants, patient, and family members, as well as other required patient management activities is 50 minutes Please note the above document was generated using voice recognition software. It may contain grammatical, syntax or spelling errors. Any formal questions or concerns about the content, text or information contained within the body of this dictation should be directly addressed to the provider for clarification Admission and Anticipated Discharge Date Admission Date: November 13, 2024 Subjective Patient seen and examined at bedside. She reports that she is feeling better compared to previous day. Dizziness has also improved Review of Systems Review of Systems: All systems reviewed & are unremarkable except as noted in Subjective Physical Exam Physical Exam: Constitutional: Awake, alert oriented x 3; not in any distress. Respiratory: Bilateral vesicular breath sound Cardiovascular: RRR, no murmur, no edema Vessels: no JVD or carotid bruit Chest: normal inspection of chest Abdomen: Soft, nontender. Musculoskeletal: no cyanosis or clubbing, extremities motor strength 5/5 Skin: no rashes, warm and dry normal turgor Neurologic: PERRL, EOMI, accommodation nl, no face palsy, no dysarthria CN's II- XI intact bilaterally and moves all extremities Psychiatric: A+Ox3, euthymic affect Results & Data Results & Data Vital Signs (Past 12 Hours) Vital Signs Temp Pulse Resp BP BP Pulse Ox O2 Del Method 11/16/24 11:34 36.6 C 74 21 103/65 96 Room Air 11/16/24 07:41 36.6 C 70 21 108/67 97 Room Air 11/16/24 03:25 36.6 C 70 17 93/41 L 96 Room Air (2) GERD (gastroesophageal reflux disease) Esophagitis bleeding: without hemorrhage Esophagitis presence: with esophagitis Qualified Code(s): K21.00 - Gastro-esophageal reflux disease with esophagitis, without bleeding
[2024-11-17] MEDS: ROSUVASTATIN CALCIUM 10 MG TAB PO SCH (08:13)
[2024-11-17 08:18] LABS: Hematocrit (blood only) 36.1 % (37.0-47.0); Hemoglobin 11.6 g/dl (12.0-16.0); Immature Granulocytes # (auto) 0.03 K/uL (0.01-0.20); Immature Granulocytes % (auto) 0.5 %; Mean Corpuscular Hemoglobin 30.8 pg (25.0-34.0); Mean Corpuscular Volume 95.8 fL (80.0-100.0); Platelet Count 137 K/uL (130-400); RDW Standard Deviation 48.9 fL (36.4-46.3); Red Blood Count 3.77 M/uL (4.20-5.40); White Blood Count 5.89 K/ul (4.8-10.8)
[2024-11-17 08:37] LABS: Anion Gap 5.0 (3-11); Blood Urea Nitrogen 22.0 mg/dl (6-23); Calcium 8.8 mg/dl (8.6-10.3); Carbon Dioxide 28.0 mmol/L (21-32); Chloride 110.0 mmol/L (98-107); Creatinine Clr Calc Pharmacy 25.1 ml/min; Glucose 88.0 mg/dl (70-99(Fasting)); Potassium 4.3 mmol/L (3.5-5.1); Sodium 143.0 mmol/L (136-145)
[2024-11-17 10:12] LABS: Thyroid Stimulating Hormone 2.565 uIu/ml (0.300-4.500)
[2024-11-17] MEDS: LACTATED RINGER'S 1,000 ML IV SCH (10:43)
[2024-11-17] MEDS: FLUDROCORTISONE ACETATE 0.1 MG TAB PO SCH (12:03)
--- NOTE | 2024-11-17 14:23 | Discharge Summary ---
Discharge Summary Date of Service November 17, 2024 Principal Dx & Hospital Course #1 = Principal Diagnosis (1) NSTEMI (non-ST elevated myocardial infarction): (2) GERD (gastroesophageal reflux disease): Plan Patient is a 88-year-old female with past medical history of chronic systolic heart failure, CAD status post CABG/stent, chronic LBBB, peripheral vascular disease, hypertension, hyperlipidemia who presents to the hospital with epigastric pain, nausea and vomiting. NSTEMI History of CAD status post CABG/stent Patient presented to the hospital with epigastric pain, nausea/vomiting. EKG on admission showed normal sinus rhythm with left bundle branch block. High-sensitivity troponin was 29 on admission which up trended to 806 and downtrended. Echocardiogram shows focal hypokinesis of the basal segment of the inferior wall and the basal segment of the posterior wall. EF of 35 to 39%. Patient was treated with IV heparin; continue aspirin and Lipitor. No recurrence of epigastric pain. Losartan on hold for hypertension Continue on metoprolol PT/OT eval GERDcontinue on Protonix, Carafate and famotidine. Hypertensionlosartan on hold; continue on metoprolol. will dc on discharge. Hyperlipidemiacontinue on Lipitor Notes For Next Care Provider 88 yo female with pmhx of chronic systolic heart failure (EF 45 to 50%, TTE 2023), CAD status post CABG (2004)/stent (2006), chronic LBBB, PVD status post surgery, TIA, hypertension, hyperlipidemia, GERD, prediabetes, mood disorder, past tobacco abuse who presents for NSTEMi. On medicine, cardiology consulted, recommended medical management. Noted to have significant orthostatic hypotension, even with fluids, started fludrocortisone with improvement. On 11/17/2024 patient medically stable for discharge home. To do: [ ] adjust florinef dosing vs. titrate off [ ] f/u with cardiology Medication Changes From Visit -see below Admission HPI Per Admitting Provider History obtained from patient, family, and records. Medical history significant for chronic systolic heart failure (EF 45 to 50%, TTE 2023), CAD status post CABG (2004)/stent (2006), chronic LBBB, PVD status post surgery, TIA, hypertension, hyperlipidemia, GERD, prediabetes, mood disorder, past tobacco abuse. 6 months history of postprandial epigastric pain, nausea, vomiting symptoms. Worsening heartburn. Discomfort sometimes going to the chest. Different from heart attack from 2005 as per patient. Some weight loss. No OTC NSAID intake. Denies hematemesis/coffee-ground emesis/melena/bloody stools.' Patient started by PCP on PPI medication last June,. Patient seen on outpatient GI consultation 3 weeks ago. Carafate added to patient's PPI and famotidine Rx. Outpatient EGD scheduled next week. 4 days ago, patient noted dizziness described as lightheadedness. No headache symptoms. Worsening epigastric discomfort going to the chest associated with nausea, palpitations, and bilious emesis. No gross bleeding noted at home. EMS called to patient's home. Patient noted to be tachycardic, heart rate 116. Patient brought to ER for evaluation. Medical History as above 2018 EGD showed tortuous esophagus, hiatal hernia, gastritis, normal duodenum 2016 colonoscopy showed sigmoid diverticulosis Surgical History : CABG, partial hysterectomy, right thromboendarterectomy, cholecystectomy Family History : Heart disease, DM Personal/Social history : Past tobacco abuse, no recent EtOH intake, retired [employer] employee Discharge Exam Gen: A&O 3 NAD, cachexia and sarcopenia noted HEENT: NCAT, EOMI, not icteric. External ears normal. No rhinorrhea. Moist mucous membranes. Neck: Supple, full range of motion, no observable masses, No meningeal sign. Lungs: No Respiratory distress. CV: RRR, no edema. Abdomen: Soft, nondistended, No rebound tenderness. MSK: No joint swelling, no redness. Skin: No rashes, petechiae, lesions. Normal color per patient. Neuro: Normal Gait, Grossly intact. Psych: Appropriate for situation. Updated Medication List Medication Instructions Recorded Confirmed Type amitriptyline 10 mg tablet 10 mg PO HS 07/07/20 11/13/24 History aspirin 81 mg tablet,delayed 81 mg PO DAILY 07/07/20 11/13/24 History release (Jerzy Low Dose Aspirin) cholecalciferol (vitamin D3) 25 25 mcg PO DAILY 07/07/20 11/13/24 History mcg (1,000 unit) tablet (Vitamin D3) cyanocobalamin (vitamin B-12) 1,000 mcg PO DAILY 07/07/20 11/13/24 History 1,000 mcg tablet (Vitamin B-12) metoprolol succinate 25 mg 12.5 mg PO HS 07/07/20 11/13/24 History tablet,extended release 24 hr acetaminophen 500 mg tablet 500 - 1,000 mg PO DIRECTED PRN 11/13/24 11/13/24 History (Tylenol Extra Strength) Pain famotidine 20 mg tablet 20 mg PO HS 11/13/24 11/13/24 History mirabegron 25 mg tablet,extended 25 mg PO HS 11/13/24 11/13/24 History release 24 hr (Myrbetriq) pantoprazole 40 mg tablet,delayed 40 mg PO BID 11/13/24 11/13/24 History release sucralfate 1 gram tablet (Carafate) 1 g PO TID PRN Acid Reflux 11/13/24 11/13/24 History fludrocortisone 0.1 mg tablet 0.1 mg PO QAM #30 tabs 11/17/24 Rx rosuvastatin 10 mg tablet 10 mg PO QAM #30 tabs 11/17/24 Rx Hospital Stay Data Consultations 11/13/24 05:15 ED Decision to Admit Stat 11/13/24 06:15 Consult Gastroenterology Routine 11/13/24 07:21 Consult Cardiology Routine Diagnostic Imagining Performed 11/13/24 02:32 CT abd pelvis IV con only Stat CT angio chest PE protocol Stat Pending Results Patient Have Any Pending Studies at Discharge: No Discharge Instructions Given to Patient (Per Discharging Provider) 1. Please follow up with cardiology, PCP. 2. Please follow up about the fludrocortisone with PCP, uptitrate as needed. Total Time Total Time Spent Total Time Spent (In Minutes): I spent a total of 35 minutes in direct patient care, including [id number] time with the patient and/or family, reviewing medical records, ordering and reviewing diagnostic tests, and coordinating care with other healthcare providers. This time includes: history taking, physical examination, medical decision making, counseling, ECG interpretation, imaging interpretation, lab interpretation, orders, and education, excluding time spent in the performance of separately billed services.
== END 2024-11-17 16:40 | disposition home or self-care (01) | DRG 281 ==
LOC: ED 00:41 → EDINP 05:29 → SUATTDRO 05:29 → 2S 06:16